=== PATIENT | male | born 1950 | race Asian ===

== ENCOUNTER 2021-04-27 15:32 | Outpatient (CLI) | payer SELFPAY | END 2021-04-27 15:33 | disposition EMS.NT | LOC: EMS 15:32 | DX: R42 Dizziness and giddiness (principal); R53.1 Weakness ==

== ENCOUNTER 2021-07-29 04:57 | Outpatient (CLI) | payer MEDICARE, OTHER | END 2021-07-29 04:58 | disposition short-term general hospital (02) | LOC: EMS 04:57 | DX: M54.50 Low back pain, unspecified (principal); G89.29 Other chronic pain | CPT/HCPCS: A0425; A0429 ==

== ENCOUNTER 2021-08-01 10:38 | Outpatient (CLI) | payer MEDICARE, OTHER | END 2021-08-01 10:39 | disposition short-term general hospital (02) | LOC: EMS 10:38 | DX: Z00.8 Encounter for other general examination (principal); R29.898 Other symptoms and signs involving the musculoskeletal system | CPT/HCPCS: A0425; A0429 ==

== ENCOUNTER 2022-03-01 13:36 | Outpatient (CLI) | payer MEDICARE, OTHER | END 2022-03-01 23:59 | disposition EMS.NT | LOC: EMS 13:36 | DX: F41.9 Anxiety disorder, unspecified (principal); R44.3 Hallucinations, unspecified ==

== ENCOUNTER 2022-03-09 14:51 | Outpatient (CLI) | payer MEDICARE, OTHER | END 2022-03-09 14:52 | disposition critical access hospital (66) | LOC: EMS 14:51 | DX: R07.89 Other chest pain (principal); R20.0 Anesthesia of skin; R23.1 Pallor; R06.00 Dyspnea, unspecified | CPT/HCPCS: A0425; A0427 ==

== ENCOUNTER 2022-03-09 15:07 | Emergency (ER) | payer MEDICARE, OTHER ==
--- NOTE | 2022-03-09 15:27 | ED Physician Documentation ---
PD HPI CHEST PAIN - Stated complaint Stated Complaint: CHEST PRESSURE - Chief complaint Chief Complaint: Cardiac - History obtained from History obtained from: Patient - History of Present Illness Timing - onset: Today (Onset of some chest discomfort and dyspnea after talking with his estranged . This made him very anxious. He has had some dyspnea over the last couple of days however. No edema. No fevers. Some mild cough.) Timing - onset during: Rest, Emotional event Timing - details: Abrupt onset, Still present (improving) Quality: Tightness Location: Substernal Associated symptoms: Shortness of air, Cough. No: Nausea, Feeling faint / dizzy, Palpitations Similar symptoms before: Has not had sx before Review of Systems Constitutional: denies: Fever, Chills Nose: denies: Rhinorrhea / runny nose, Congestion Throat: denies: Sore throat Cardiac: reports: Chest pain / pressure (just today). denies: Palpitations, Pedal edema, Calf pain Respiratory: reports: Dyspnea, Cough (mild). denies: Wheezing GI: denies: Nausea, Vomiting, Diarrhea Skin: denies: Rash, Lesions Neurologic: reports: Generalized weakness. denies: Focal weakness, Numbness PD PAST MEDICAL HISTORY - Past Medical History Cardiovascular: None Respiratory: None Neuro: Parkinson's (largely sedentary due to this. ) - Present Medications Home Medications: Ambulatory Orders Medication Instructions Recorded Confirmed Albuterol Sulf [Ventolin Hfa 3 puffs INH TID 15 Days #1 inhaler 03/09/22 Inhaler] cefUROXime axetiL [Ceftin] 250 mg PO Q12H #12 tablet 03/09/22 - Allergies Allergies/Adverse Reactions: Allergies Allergy/AdvReac Type Severity Reaction Status Date / Time ciprofloxacin [From Cipro] Allergy Unknown Verified 03/09/22 15:15 meperidine [From Demerol] Allergy Unknown Verified 03/09/22 15:15 - Living Situation Living Situation: reports: Alone Living Arrangement: reports: Assisted living - Social History Does the pt smoke?: No Does the pt drink ETOH?: No Does the pt have substance abuse?: No PD ED PE NORMAL - Vitals Vital signs reviewed: Yes - General General: Alert and oriented X 3, No acute distress, Well developed/nourished - HEENT HEENT: Pharynx benign - Neck Neck: Supple, no meningeal sign, No adenopathy - Cardiac Cardiac: RRR, No murmur - Respiratory Respiratory: Clear bilaterally - Abdomen Abdomen: Soft, Non tender - Derm Derm: Normal color, Warm and dry Results - Vitals Vitals: Vital Signs - 24 hr 03/09/22 03/09/22 03/09/22 15:16 15:43 17:51 Temperature 37.1 C Heart Rate 56 L 57 L 60 Respiratory 19 20 16 Rate Blood Pressure 181/97 H 191/96 H O2 Saturation 99 98 03/09/22 03/09/22 03/09/22 18:23 18:30 19:36 Temperature Heart Rate 63 61 70 Respiratory 20 18 14 Rate Blood Pressure 126/79 161/84 H 170/112 H O2 Saturation 98 97 98 03/09/22 19:37 Temperature Heart Rate 84 Respiratory 18 Rate Blood Pressure 170/98 H O2 Saturation 98 Oxygen O2 Source Room air - EKG (time done) 15:16 Rate: Rate (enter#) (58) Rhythm: NSR Scheller: Normal Intervals: Normal RI, Wide QRS QRS: LVH Ischemia: Normal ST segments, ST elevation c/w repol, Non specific changes. No: ST elevation c/w ischemia, ST depression - Labs Labs: Laboratory Tests 03/09/22 03/09/22 03/09/22 15:28 15:28 Unknown WBC 7.1 RBC 4.24 L Hgb 12.8 L Hct 38.3 L MCV 90.3 MCH 30.2 MCHC 33.4 RDW 13.5 Plt Count 203 MPV 9.4 Neut # (Auto) 4.8 Lymph # (Auto) 1.4 L [place] # (Auto) 0.7 Eos # (Auto) 0.2 Baso # (Auto) 0.1 Absolute Nucleated RBC 0.00 Nucleated RBC % 0.0 Sodium 134 L Potassium 4.4 Chloride 100 L Carbon Dioxide 27 Anion Gap 7.0 BUN 28 H Creatinine 1.0 Estimated GFR (MDRD) 74 L Glucose 109 H Calcium 9.0 Total Bilirubin 0.7 AST 16 ALT < 10 L Alkaline Phosphatase 65 Troponin I High Sens 9.4 Total Protein 6.5 L Albumin 4.4 Globulin 2.1 Albumin/Globulin Ratio 2.1 Lipase 29 - Rads (name of study) chest xray Radiology: Prelim report reviewed (lower right field haziness, atelectassis versus early pneumonia. ), See rad report PD MEDICAL DECISION MAKING - ED course Complexity details: reviewed results, considered differential (Onset of some chest discomfort and dyspnea after talking with his estranged . This made him very anxious. He has had some dyspnea over the last couple of days however. No edema. No fevers. Some mild cough.), d/w patient, d/w netsuite consultant (Dr. Kam, his PMD, and discussed findings and plan. ) Departure - Departure Disposition: 01 Home, Self Care Clinical Impression: Dyspnea, Pneumonia, Anxiety Condition: Stable Record reviewed to determine appropriate education?: Yes Follow-Up: RADHA KAM MD [Primary Care Provider] - Prescriptions: cefUROXime axetiL [Ceftin] 250 mg PO Q12H #12 tablet Albuterol Sulf [Ventolin Hfa Inhaler] 3 puffs INH TID 15 Days #1 inhaler Comments: I did talk with Dr. Kam who is in agreement with having you do the albuterol inhaler 2 puffs 3 times a day to help improve airflow through the lungs and expand them well. We would have you stop the Macrobid/nitrofurantoin antibiotic you are currently on for the bladder. We would replace it with cefuroxime twice daily for 6 days to cover both possible early pneumonia and any residual bladder infection. She would also like you to do an incentive spirometer 3 times daily to help expand the lungs well. Continue your other medicines as usual. I transmitted your prescriptions to [facility] pharmacy in [place]. Discharge Date/Time: 03/09/22 19:37
[2022-03-09 15:32] LABS: BASOPHILS # (AUTO) 0.1 10^3/uL (0.0-0.1); EOSINOPHILS # (AUTO) 0.2 10^3/uL (0.0-0.7); EOSINOPHILS % (AUTO) 2.3 %; HCT - HEMATOCRIT 38.3 % (42.0-52.0); HGB - HEMOGLOBIN 12.8 g/dL (14.0-18.0); LYMPHOCYTES # (AUTO) 1.4 10^3/uL (1.5-3.5); LYMPHOCYTES % (AUTO) 19.2 %; MEAN CORPUSCULAR HEMOGLOBIN 30.2 pg (27.0-31.0); MEAN CORPUSCULAR HGB CONC 33.4 g/dL (32.0-36.0); MEAN CORPUSCULAR VOLUME 90.3 fL (80.0-94.0); MEAN PLATELET VOLUME 9.4 fL (7.4-11.4); MONOCYTES # (AUTO) 0.7 10^3/uL (0.0-1.0); MONOCYTES % (AUTO) 9.5 %; NEUTROPHILS # (AUTO) 4.8 10^3/uL (1.5-6.6); NEUTROPHILS % (AUTO) 67.9 %; PLT - PLATELET COUNT 203 10^3/uL (130-450); RED BLOOD COUNT 4.24 10^6/uL (4.70-6.10); RED CELL DISTRIBUTION WIDTH 13.5 % (12.0-15.0); WHITE BLOOD COUNT 7.1 x10^3/uL (4.8-10.8)
[2022-03-09 15:50] LABS: ALBUMIN 4.4 g/dL (3.2-5.5); ALBUMIN/GLOBULIN RATIO 2.1 (1.0-2.2); ALKALINE PHOSPHATASE 65 IU/L (42-121); ALT ALANINE AMINOTRANSFERASE < 10 IU/L (10-60); AST ASPARTATE AMINOTRANSFERASE 16 IU/L (10-42); BILIRUBIN,TOTAL 0.7 mg/dL (0.2-1.0); BUN - BLOOD UREA NITROGEN 28 mg/dL (6-20); CARBON DIOXIDE - CO2 27 mmol/L (21-32); CHLORIDE 100 mmol/L (101-111); GFR - MDRD 74 (>89); GLUCOSE 109 mg/dL (70-100); LIPASE 29 U/L (22-51); POTASSIUM 4.4 mmol/L (3.5-5.0); SODIUM 134 mmol/L (135-145); TOTAL PROTEIN 6.5 g/dL (6.7-8.2)
--- NOTE | 2022-03-09 16:01 | XRAY Report ---
PROCEDURE: Chest 1 View X-Ray INDICATIONS: Chest Pain TECHNIQUE: One view of the chest was acquired. COMPARISON: None. FINDINGS: Surgical changes and devices: None. Lungs and pleura: No pleural effusions or pneumothorax. Hazy opacity at the right lower lobe. Mediastinum: Mediastinal contours appear normal. Heart size is prominent. Bones and chest wall: No suspicious bony lesions. Overlying soft tissues appear unremarkable. IMPRESSION: Right lower lobe hazy opacity. This could represent pneumonia or atelectasis. Heart size is prominent. Reviewed by: Fabian Francisco MD on 03/09/2022 3:59 PM PDT Approved by: Fabian Francisco MD on 03/09/2022 3:59 PM PDT Station ID: [id number]
[2022-03-09] MEDS ORDERED: CARBIDOPA/LEVODOPA ER 50 MG/200 MG TABLET PO STA (16:21)
--- OUTSIDE RECORDS SUMMARY | 2022-03-09 16:47 | EXTERNAL MEDICAL SUMMARY RPT | Continuity of Care Document ---
:1950 Author Organization [facility] Address [address] [place] [address] Phone Care Team Providers Name Role Phone Kam Unavailable Unavailable Reji Unavailable Unavailable Allergies No information. Encounters No information. Medications date description facility 20211229 Tams[facility]ide 0.4 [id number] Alfuzosin hydrochloride 10 MG Ext ended Release [facility] Tablet [id number] Cholecalciferol 2000 [facility] [id number] ferrous sulfate [address] [facility] [id number] ciclopirox 80 MG/ML Topical Solution [facility] 60258231 Melatonin 10 MG Oral Capsule [facility] [id number] Calcium Carbonate 1250 MG Oral Tablet [facility] 63358827 Dexamethasone 4 MG Oral Tablet [facility] 10021165 24 HR Alfuzosin hydrochloride 10 MG Ext ended Release [facility] Tablet [id number] Cholecalciferol 2000 [facility]NT [facility] 09297017 ferrous sulfate [address] [facility] 60365690 ciclopirox 80 MG/ML Topical Solution [facility] 92401592 Melatonin 10 MG [facility] [id number] Calcium Carbonate 1250 MG Oral Tablet [facility] 46429255 Dexamethasone 4 MG Oral Tablet [facility] Problems date description facility 20211214 Other obstructive and reflux uropathy [facility] [id number] Benign prostatic hyperplasia with lower urinary tract [facility] sympto Procedures date description facility 20220114 [facility] 20211214 [facility] [id number] [facility] [id number] [facility] [id number] Diagnosis [facility] Results No information. Vital Signs date measurement value source 20211214 weight_standard 79.83 lb 20211214 weight_metric 36.21 kg 20211214 respiration_rate 16 /min 20211214 height_standard 68 in 20211214 height_metric 172.72 cm 20211214 heart_rate 76 /min 20211214 BP_systolic 149 mm[Hg] 20211214 BP_diastolic 76 mm[Hg] 20211214 BMI 26.7 kg/m2 20220114 weight_standard 81.19 lb 20220114 weight_metric 36.83 kg 20220114 temperature_standard 98 F 20220114 temperature_metric 36.67 C 20220114 respiration_rate 18 /min 20220114 height_standard 68 in 20220114 height_metric 172.72 cm 20220114 heart_rate 60 /min 20220114 BP_systolic 168 mm[Hg] 20220114 BP_diastolic 78 mm[Hg] 20220114 BMI 27.2 kg/m2
[2022-03-09] MEDS ORDERED: ALBUTEROL 1 PUFF INH STA (16:57)
[2022-03-09 19:48] VITALS: BP 170/98
== END 2022-03-09 19:37 | disposition home or self-care (01) ==
LOC: EDUNIT# → ED 15:07
DX: J18.9 Pneumonia, unspecified organism (principal); F41.9 Anxiety disorder, unspecified
CPT/HCPCS: 36415; 71045; 80053; 83690; 84484; 85025; 93005; 94640; 94664; 99284; A9270

== ENCOUNTER 2022-04-09 07:02 | Outpatient (CLI) | payer MEDICARE, OTHER | END 2022-04-09 07:03 | disposition short-term general hospital (02) | LOC: EMS 07:02 | DX: M62.838 Other muscle spasm (principal); G20 Parkinson's disease | CPT/HCPCS: A0425; A0429 ==

== ENCOUNTER 2022-05-17 10:11 | Outpatient (CLI) | payer MEDICARE, OTHER | END 2022-05-17 10:12 | disposition critical access hospital (66) | LOC: EMS 10:11 | DX: R40.4 Transient alteration of awareness (principal) | CPT/HCPCS: A0425; A0427 ==

== ENCOUNTER 2022-05-17 10:26 | Emergency (ER) | payer MEDICARE, OTHER ==
--- OUTSIDE RECORDS SUMMARY | 2022-05-17 10:37 | EXTERNAL MEDICAL SUMMARY RPT | Continuity of Care Document ---
:1950 Author Organization [facility] Address [address] [place] [address] Phone Allergies and Intolerances date description facility type (no date) ciprofloxacin [facility] (unknown) (no date) codeine [facility] (unknown) (no date) meperidine [facility] (unknown) Encounters No information. Functional Status No information. Immunizations No information. Medications date description facility [id number] Lorazepam 1 MG Oral Tablet [facility] Problems No information. Procedures date description facility [id number] General Physician [facility] Results/Labs test date author facility value unit interpret ation Result panel 1 (unknown) (no (unknown) (unknown) Qty: 0 (units (unkno wn) date) unknown) (unknown) (no (unknown) (unknown) (no value) (units (unk nown) date) unknown) (unknown) (no (unknown) (unknown) PO (units (unkno wn) date) unknown) (unknown) (no (unknown) (unknown) Date of Service: (units (unknown) date) 04/09/22 unknown) (unknown) (no (unknown) (unknown) (no value) (units (unk nown) date) unknown) (unknown) (no (unknown) (unknown) 0 PO SEE (units (unkn own) date) INSTRUCTIONS Qty: unknown) 250 3RF (unknown) (no (unknown) (unknown) 0.4 mg PO BEDTIME (units (unknown) date) Qty: 90 3RF unknown) (unknown) (no (unknown) (unknown) 1 applic topical (units (unknown) date) BEDTIME unknown) (unknown) (no (unknown) (unknown) 1 tab PO Q6H PRN (units (unknown) date) (Reason: pain) Qty: unknown) 14 0RF (unknown) (no (unknown) (unknown) 10 mg PO BEDTIME (units (unknown) date) PRN unknown) (unknown) (no (unknown) (unknown) 10 mg PO TID PRN (units (unknown) date) (Reason: muscle unknown) spasm) Qty: 14 0RF (unknown) (no (unknown) (unknown) 20 mg PO DAILY (units (unknown) date) unknown) (unknown) (no (unknown) (unknown) 25 mg PO DAILY Qty: (unit s (unknown) date) 90 3RF unknown) (unknown) (no (unknown) (unknown) 50 mcg PO DAILY (units (unknown) date) unknown) (unknown) (no (unknown) (unknown) 500 mg PO TID (units ( unknown) date) unknown) (unknown) (no (unknown) (unknown) Allergies (units (unkn own) date) unknown) (unknown) (no (unknown) (unknown) ED Orders (units (unkn own) date) unknown) (unknown) (no (unknown) (unknown) Emergency Report (units (unknown) date) unknown) (unknown) (no (unknown) (unknown) Home Medications (units (unknown) date) unknown) (unknown) (no (unknown) (unknown) [facility] (units (unknown) date) [address] [place] [address] unknown) [place] [address] (unknown) (no (unknown) (unknown) Previous Rx's (units ( unknown) date) unknown) (unknown) (no (unknown) (unknown) Stop: 04/09/22 (units (unknown) date) 08:10 unknown) (unknown) (no (unknown) (unknown) Vital Signs - 8 hr (units (unknown) date) unknown) (unknown) (no (unknown) (unknown) (no value) (units (unk nown) date) unknown) (unknown) (no (unknown) (unknown) Myrbetriq 25 mg (units (unknown) date) tablet extended unknown) release 24 hr (unknown) (no (unknown) (unknown) alzet (units (unkno wn) date) unknown) (unknown) (no (unknown) (unknown) calcium carbonate (units (unknown) date) 500 mg calcium unknown) (1,250 mg) tablet (unknown) (no (unknown) (unknown) carbidopa-levodopa (units (unknown) date) 50 MG/200 MG tablet unknown) extended release (unknown) (no (unknown) (unknown) cholecalciferol (units (unknown) date) (vitamin D3) 50 mcg unknown) (2,000 unit) capsule (unknown) (no (unknown) (unknown) ciclopirox 8 % (units (unknown) date) solution unknown) (unknown) (no (unknown) (unknown) cyclobenzaprine 10 (units (unknown) date) mg tablet unknown) (unknown) (no (unknown) (unknown) diphenhydramine HCl (unit s (unknown) date) [Banophen Allergy] unknown) 12.5 MG/5 ML liquid (unknown) (no (unknown) (unknown) hydrocodone-acetami (unit s (unknown) date) nophen 5-325 mg unknown) tablet (unknown) (no (unknown) (unknown) melatonin 10 mg (units (unknown) date) capsule unknown) (unknown) (no (unknown) (unknown) omeprazole 20 mg (units (unknown) date) capsule,delayed unknown) release(DR/EC) (unknown) (no (unknown) (unknown) tamsulosin [Flomax] (unit s (unknown) date) 0.4 mg capsule unknown) (unknown) (no (unknown) (unknown) 04/09/22 (units (o wn) date) unknown) (unknown) (no (unknown) (unknown) Medication (units (unk nown) date) Instructions unknown) Recorded (unknown) (no (unknown) (unknown) Medication (units (unk nown) date) Instructions unknown) Recorded Confirmed (unknown) (no (unknown) (unknown) tabs (units (o wn) date) unknown) (unknown) (no (unknown) (unknown) (1,250 mg) tablet (units (unknown) date) unknown) (unknown) (no (unknown) (unknown) 04/09/22 07:55 (units (unknown) date) unknown) (unknown) (no (unknown) (unknown) 07:50 (units (o wn) date) unknown) (unknown) (no (unknown) (unknown) [id number] (units (o wn) date) unknown) (unknown) (no (unknown) (unknown) ABD:bowel sounds (units (unknown) date) normal, soft, unknown) non-tender, no guarding, rebound, rigidity, no (unknown) (no (unknown) (unknown) ADHD (units (unkno wn) date) unknown) (unknown) (no (unknown) (unknown) Acne (-1964) (units (u nknown) date) unknown) (unknown) (no (unknown) (unknown) Age/Sex: 71 / M (units (unknown) date) unknown) (unknown) (no (unknown) (unknown) Allergy/AdvReac (units (unknown) date) Type Severity unknown) Reaction Status Date / Time (unknown) (no (unknown) (unknown) Anesthesia (units (unk nown) date) unknown) (unknown) (no (unknown) (unknown) BPH (benign (units (un known) date) prostatic unknown) hyperplasia) (unknown) (no (unknown) (unknown) BPH w urinary (units ( unknown) date) obs/LUTS unknown) (unknown) (no (unknown) (unknown) Blood Pressure (units (unknown) date) 170/78 H 04/09/22 unknown) 07:50 (unknown) (no (unknown) (unknown) Blood Pressure (units (unknown) date) 170/78 H unknown) (unknown) (no (unknown) (unknown) Broken arm (-1965) (units (unknown) date) unknown) (unknown) (no (unknown) (unknown) CBC Auto Diff (units ( unknown) date) [Complete Blood unknown) Count AUTO DIFF] Stat (unknown) (no (unknown) (unknown) CMP [Comprehensive (units (unknown) date) Metabolic Panel] unknown) Stat (unknown) (no (unknown) (unknown) Cataracts, (units (unk nown) date) bilateral (-2014) unknown) (unknown) (no (unknown) (unknown) Chicken pox (units (un known) date) unknown) (unknown) (no (unknown) (unknown) Chief complaint: (units (unknown) date) Weakness unknown) (unknown) (no (unknown) (unknown) Chronic back pain (units (unknown) date) (-2014) unknown) (unknown) (no (unknown) (unknown) Course (units (unkno wn) date) unknown) (unknown) (no (unknown) (unknown) : 1950 (units (unknown) date) Acct:[id number] unknown) (unknown) (no (unknown) (unknown) Departure (units (unkn own) date) unknown) (unknown) (no (unknown) (unknown) Depression () (units (unknown) date) unknown) (unknown) (no (unknown) (unknown) Discharge Plan (units (unknown) date) unknown) (unknown) (no (unknown) (unknown) Discontinued (units (u nknown) date) Medications unknown) (unknown) (no (unknown) (unknown) EKG-12 Lead Stat (units (unknown) date) unknown) (unknown) (no (unknown) (unknown) EMS and they state (units (unknown) date) that he would have unknown) episodes of spasms they were able to (unknown) (no (unknown) (unknown) ER Physician: (units ( unknown) date) Azul Leon D.O. unknown) (unknown) (no (unknown) (unknown) Eczema (-1957) (units (unknown) date) unknown) (unknown) (no (unknown) (unknown) Elevated PSA (units (u nknown) date) unknown) (unknown) (no (unknown) (unknown) Exam (units (unkno wn) date) unknown) (unknown) (no (unknown) (unknown) Exam Narrative: (units (unknown) date) unknown) (unknown) (no (unknown) (unknown) Family History (units (unknown) date) (Reviewed 04/09/22 @ unknown) 08:12 by Azul Leon DO) (unknown) (no (unknown) (unknown) Family history of (units (unknown) date) prostate cancer unknown) (unknown) (no (unknown) (unknown) Father (units (unknown) date) Stroke unknown) (unknown) (no (unknown) (unknown) Foot pain () (units (unknown) date) unknown) (unknown) (no (unknown) (unknown) GEN: well (units (unkn own) date) nourished, well unknown) appearing male, alert and oriented x 3, patient (unknown) (no (unknown) (unknown) GERD (units (unkno wn) date) (gastroesophageal unknown) reflux disease) () (unknown) (no (unknown) (unknown) :No CVA (units (unkn own) date) tenderness unknown) (unknown) (no (unknown) (unknown) Marilin Kam MD (unit s (unknown) date) [Primary Care unknown) Provider] - (unknown) (no (unknown) (unknown) Gastric ulcer (units ( unknown) date) () unknown) (unknown) (no (unknown) (unknown) General (units (unkno wn) date) unknown) (unknown) (no (unknown) (unknown) HEART: Regular rate (units (unknown) date) and rhythm without unknown) murmur, clicks, rubs. Pulses are equal in (unknown) (no (unknown) (unknown) HEENT: Atraumatic, (units (unknown) date) pupils are equal unknown) round reactive to light, extraocular (unknown) (no (unknown) (unknown) HPI - General Adult (unit s (unknown) date) unknown) (unknown) (no (unknown) (unknown) HPI narrative: (units (unknown) date) unknown) (unknown) (no (unknown) (unknown) He is unsure if he (units (unknown) date) has had his a.m. unknown) Parkinson's medications he does take them 4 (unknown) (no (unknown) (unknown) Hearing loss (units (u nknown) date) () unknown) (unknown) (no (unknown) (unknown) Hemorrhoid () (units (unknown) date) unknown) (unknown) (no (unknown) (unknown) Hepatitis A () (unit s (unknown) date) unknown) (unknown) (no (unknown) (unknown) History of Present (units (unknown) date) Illness unknown) (unknown) (no (unknown) (unknown) Initial Vital Signs (unit s (unknown) date) unknown) (unknown) (no (unknown) (unknown) Initial Vital (units ( unknown) date) Signs: unknown) (unknown) (no (unknown) (unknown) LUNGS:Lungs clear (units (unknown) date) to auscultation, no unknown) wheezes, rales, crackles, chest moves (unknown) (no (unknown) (unknown) Limitations: no (units (unknown) date) limitations unknown) (unknown) (no (unknown) (unknown) Lorazepam (units (unkn own) date) (Lorazepam 0.5 Mg unknown) Tablet) 1 mg PO NOW ONE (unknown) (no (unknown) (unknown) MAG [Magnesium] (units (unknown) date) Stat unknown) (unknown) (no (unknown) (unknown) MDM Narrative (units ( unknown) date) unknown) (unknown) (no (unknown) (unknown) MSCL: Non-tender, (units (unknown) date) no muscle atrophy, unknown) patient is lying on his side, he has some (unknown) (no (unknown) (unknown) Measles (units (unkno wn) date) unknown) (unknown) (no (unknown) (unknown) Medical Decision (units (unknown) date) Making unknown) (unknown) (no (unknown) (unknown) Medical History (units (unknown) date) (Reviewed 04/09/22 @ unknown) 08:12 by Azul Leon DO) (unknown) (no (unknown) (unknown) Medical decision (units (unknown) date) making narrative: unknown) (unknown) (no (unknown) (unknown) Mode of arrival: (units (unknown) date) EMS unknown) (unknown) (no (unknown) (unknown) Mother (units (unknown) date) Alzheimer's disease unknown) (unknown) (no (unknown) (unknown) Mumps (units (unkno wn) date) unknown) (unknown) (no (unknown) (unknown) NEURO:CN 2-12 (units (u nknown) date) intact, sensation unknown) normal, reflexes 2/4 upper and lower extremities (unknown) (no (unknown) (unknown) Narrative (units (unkn own) date) unknown) (unknown) (no (unknown) (unknown) No Action (units (unkn own) date) unknown) (unknown) (no (unknown) (unknown) Ordered: (units (unkno wn) date) unknown) (unknown) (no (unknown) (unknown) Orders (units (unkno wn) date) unknown) (unknown) (no (unknown) (unknown) Oxygen Delivery (units (unknown) date) Method 04/09/22 unknown) 07:50 (unknown) (no (unknown) (unknown) Oxygen Delivery (units (unknown) date) Method Room Air unknown) (unknown) (no (unknown) (unknown) Parkinsons disease (units (unknown) date) unknown) (unknown) (no (unknown) (unknown) Patient History (units (unknown) date) unknown) (unknown) (no (unknown) (unknown) Patient presents (units (unknown) date) today for spasms. unknown) Patient currently lives in a nursing (unknown) (no (unknown) (unknown) Patient: (units (unkno wn) date) Mary Dumont unknown) MR#: [id number] (unknown) (no (unknown) (unknown) Prescriptions: (units (unknown) date) unknown) (unknown) (no (unknown) (unknown) Pulse Oximetry 96 (units (unknown) date) 04/09/22 07:50 unknown) (unknown) (no (unknown) (unknown) Pulse Oximetry 96 (units (unknown) date) unknown) (unknown) (no (unknown) (unknown) Pulse Rate 57 L (units (unknown) date) 04/09/22 07:50 unknown) (unknown) (no (unknown) (unknown) Pulse Rate 57 L (units (unknown) date) unknown) (unknown) (no (unknown) (unknown) ROS Unobtainable: (units (unknown) date) All systems reviewed unknown) + are unremarkable except as noted in HPI (unknown) (no (unknown) (unknown) Recurrent sinusitis (unit s (unknown) date) (-1993) unknown) (unknown) (no (unknown) (unknown) Referrals: (units (unk nown) date) unknown) (unknown) (no (unknown) (unknown) Related Data (units (u nknown) date) unknown) (unknown) (no (unknown) (unknown) Respiratory Rate (units (unknown) date) 18 04/09/22 07:50 unknown) (unknown) (no (unknown) (unknown) Respiratory Rate 18 (unit s (unknown) date) unknown) (unknown) (no (unknown) (unknown) Restless leg (units (u nknown) date) syndrome (-2014) unknown) (unknown) (no (unknown) (unknown) Review of Systems (units (unknown) date) unknown) (unknown) (no (unknown) (unknown) SKIN: No rash, (units (unknown) date) erythema or other unknown) skin changes noted. (unknown) (no (unknown) (unknown) Shoulder pain (units ( unknown) date) () unknown) (unknown) (no (unknown) (unknown) Signed By: (units (unk nown) date) unknown) (unknown) (no (unknown) (unknown) Sister (units (unknown) date) Cancer unknown) (unknown) (no (unknown) (unknown) Smoking Status: (units (unknown) date) Former smoker unknown) (unknown) (no (unknown) (unknown) Smoking Status: (units (unknown) date) Former smoker unknown) (unknown) (no (unknown) (unknown) Social History (units (unknown) date) (Reviewed 04/09/22 @ unknown) 08:12 by Azul Leon DO) (unknown) (no (unknown) (unknown) Source: patient and (unit s (unknown) date) EMS unknown) (unknown) (no (unknown) (unknown) Stated complaint: (units (unknown) date) Spasms unknown) (unknown) (no (unknown) (unknown) Substance Use Type: (unit s (unknown) date) does not use unknown) (unknown) (no (unknown) (unknown) Substance abuse (units (unknown) date) unknown) (unknown) (no (unknown) (unknown) Surgical History (units (unknown) date) (Reviewed 04/09/22 @ unknown) 08:12 by Azul Leon DO) (unknown) (no (unknown) (unknown) Temperature 98.6 F (unit s (unknown) date) 04/09/22 07:50 unknown) (unknown) (no (unknown) (unknown) Temperature 98.6 F (units (unknown) date) unknown) (unknown) (no (unknown) (unknown) This is a (units (unkn own) date) 71-year-old male who unknown) comes to the emergency department with complaint (unknown) (no (unknown) (unknown) This is a (units (unkn own) date) 71-year-old male unknown) with known history of Parkinson's disease and BPH. (unknown) (no (unknown) (unknown) Time Seen by (units (u nknown) date) Provider: 04/09/22 unknown) 07:55 (unknown) (no (unknown) (unknown) Tinnitus (-2017) (units (unknown) date) unknown) (unknown) (no (unknown) (unknown) Vertigo (-2020) (units (unknown) date) unknown) (unknown) (no (unknown) (unknown) Vision disorder (units (unknown) date) unknown) (unknown) (no (unknown) (unknown) Vital Signs (units (un known) date) unknown) (unknown) (no (unknown) (unknown) Vital signs: (units (u nknown) date) unknown) (unknown) (no (unknown) (unknown) alcohol intake (units (unknown) date) frequency: 0-2 unknown) drinks per day (unknown) (no (unknown) (unknown) alzet PO 06/27/20 (units (unknown) date) 12/14/21 unknown) (unknown) (no (unknown) (unknown) and below (units (unkn own) date) unknown) (unknown) (no (unknown) (unknown) any point. (units (unk nown) date) unknown) (unknown) (no (unknown) (unknown) appears to be in (units (unknown) date) mild distress. unknown) Clear speech. (unknown) (no (unknown) (unknown) benzodiazepine. (units (unknown) date) Evaluated for unknown) infection. (unknown) (no (unknown) (unknown) body spasms they (units (unknown) date) have a finger cot unknown) why. Typically he has a tremor he does have (unknown) (no (unknown) (unknown) but states there (units (unknown) date) was no exact cause unknown) found he is on medications for Parkinson's, (unknown) (no (unknown) (unknown) calcium carbonate (units (unknown) date) 500 mg calcium 500 unknown) mg PO TID 12/14/21 12/14/21 (unknown) (no (unknown) (unknown) carbidopa ER 50 (units (unknown) date) mg-levodopa 200 mg 0 unknown) PO SEE INSTRUCTIONS #250 tabs 09/16/17 (unknown) (no (unknown) (unknown) chest pain or (units (u nknown) date) pressure. He has unknown) had some spasm in his muscles all over the cause (unknown) (no (unknown) (unknown) cholecalciferol (units (unknown) date) (vitamin D3) 50 50 unknown) mcg PO DAILY 12/14/21 12/14/21 (unknown) (no (unknown) (unknown) ciclopirox 8 % (units (unknown) date) topical solution 1 unknown) applic topical BEDTIME 12/14/21 12/14/21 (unknown) (no (unknown) (unknown) ciprofloxacin [From (unit s (unknown) date) Cipro] Allergy unknown) Verified 08/01/21 12:33 (unknown) (no (unknown) (unknown) codeine [CODEINE] (units (unknown) date) Allergy Severe unknown) unkown Unverified 08/01/21 12:33 (unknown) (no (unknown) (unknown) cyclobenzaprine 10 (units (unknown) date) mg tablet 10 mg PO unknown) TID PRN muscle spasm #14 07/29/21 (unknown) (no (unknown) (unknown) difficulty with (units (unknown) date) ambulation secondary unknown) to Parkinson's which he states is the (unknown) (no (unknown) (unknown) diphenhydramine HCl (unit s (unknown) date) 12.5 mg/5 mL ##0 unknown) 08/13/17 12/14/21 (unknown) (no (unknown) (unknown) distract him and (units (unknown) date) they would stop and unknown) they would also note that his O2 improved (unknown) (no (unknown) (unknown) electrolyte (units (un known) date) abnormalities, unknown) patient and I discussed trying a dose of oral (unknown) (no (unknown) (unknown) erythema, tonsillar (unit s (unknown) date) enlargement or unknown) uvular deviation, no facial droop. (unknown) (no (unknown) (unknown) extremities. No (units (unknown) date) obvious unknown) fasciculations or movements of his extremities (unknown) (no (unknown) (unknown) facility. He (units ( unknown) date) states he has not unknown) had any new dosing changes to his medications. (unknown) (no (unknown) (unknown) he is at least (units (unknown) date) part-time in a unknown) wheelchair. Labs were obtained to evaluate for (unknown) (no (unknown) (unknown) hydrocodone 5 (units ( unknown) date) mg-acetaminophen 325 unknown) 1 tab PO Q6H PRN pain #14 tabs 07/29/21 (unknown) (no (unknown) (unknown) is in a wheelchair. (unit s (unknown) date) Patient denies any unknown) fevers or chills. He states he has had (unknown) (no (unknown) (unknown) masses noted, no (units (unknown) date) hepatosplenomegaly unknown) (unknown) (no (unknown) (unknown) mcg (2,000 unit) (units (unknown) date) capsule unknown) (unknown) (no (unknown) (unknown) melatonin 10 mg (units (unknown) date) capsule 10 mg PO unknown) BEDTIME PRN 12/14/21 12/14/21 (unknown) (no (unknown) (unknown) meperidine [From (units (unknown) date) DEMEROL] Allergy unknown) Severe HYPOTHERMIA Unverified 08/01/21 12:33 (unknown) (no (unknown) (unknown) mg tablet (units (unkn own) date) unknown) (unknown) (no (unknown) (unknown) mild tremor and pill (unit s (unknown) date) rolling with his unknown) upper extremities mild tremor in his lower (unknown) (no (unknown) (unknown) mirabegron 25 mg (units (unknown) date) tablet,extended 25 unknown) mg PO DAILY #90 tabs 03/10/21 (unknown) (no (unknown) (unknown) movements are (units ( unknown) date) intact, nares are unknown) clear, Throat is clear without any exudates, (unknown) (no (unknown) (unknown) of full body spasms (unit s (unknown) date) patient does not unknown) have any witnessed seizure-like activity (unknown) (no (unknown) (unknown) omeprazole 20 mg (units (unknown) date) capsule,delayed 20 unknown) mg PO DAILY 06/23/20 12/14/21 (unknown) (no (unknown) (unknown) or bladder control. (units (unknown) date) No recent diarrhea. unknown) No new urinary issues, dysuria urgency (unknown) (no (unknown) (unknown) or frequency. He (units (unknown) date) does not appreciated unknown) any fevers. Patient traveled here with (unknown) (no (unknown) (unknown) oral liquid (units (un known) date) (Banophen Allergy) unknown) (unknown) (no (unknown) (unknown) otherwise. (units (unk nown) date) unknown) (unknown) (no (unknown) (unknown) per EMS during (units (unknown) date) these episodes. His unknown) O2 sat creases he is distractible during (unknown) (no (unknown) (unknown) reason he is in a (units (unknown) date) nursing facility. unknown) He sometimes uses a walker but other times (unknown) (no (unknown) (unknown) release (units (unkno wn) date) unknown) (unknown) (no (unknown) (unknown) release 24 hr (units ( unknown) date) (Myrbetriq) unknown) (unknown) (no (unknown) (unknown) some discomfort. He (unit s (unknown) date) denies any nausea or unknown) vomiting. He denies any loss of bowel (unknown) (no (unknown) (unknown) some nasal (units (unk nown) date) congestion starting unknown) yesterday, a mild cough. He denies any active (unknown) (no (unknown) (unknown) symmetrically (units ( unknown) date) unknown) (unknown) (no (unknown) (unknown) tablet,extended (units (unknown) date) release unknown) (unknown) (no (unknown) (unknown) tamsulosin 0.4 mg (units (unknown) date) capsule (Flomax) 0.4 unknown) mg PO BEDTIME #90 caps 12/29/21 (unknown) (no (unknown) (unknown) these episodes. (units (unknown) date) During discussion unknown) patient states he has had them once before (unknown) (no (unknown) (unknown) times daily. (units (u nknown) date) Patient states he unknown) has had prior episodes were he have sees full (unknown) (no (unknown) (unknown) upper and lower (units (unknown) date) extremities unknown) (unknown) (no (unknown) (unknown) with these episodes (units (unknown) date) occurred. Per EMS unknown) patient was not tachycardic or hypoxic at Result panel 2 (unknown) (no (unknown) (unknown) Qty: 0 (units (unkno wn) date) unknown) (unknown) (no (unknown) (unknown) (no value) (units (unk nown) date) unknown) (unknown) (no (unknown) (unknown) PO (units (unkno wn) date) unknown) (unknown) (no (unknown) (unknown) Date of Service: (units (unknown) date) 04/09/22 unknown) (unknown) (no (unknown) (unknown) (no value) (units (unk nown) date) unknown) (unknown) (no (unknown) (unknown) 0 PO SEE (units (unkn own) date) INSTRUCTIONS Qty: unknown) 250 3RF (unknown) (no (unknown) (unknown) 0.4 mg PO BEDTIME (units (unknown) date) Qty: 90 3RF unknown) (unknown) (no (unknown) (unknown) 1 applic topical (units (unknown) date) BEDTIME unknown) (unknown) (no (unknown) (unknown) 1 tab PO Q6H PRN (units (unknown) date) (Reason: pain) Qty: unknown) 14 0RF (unknown) (no (unknown) (unknown) 10 mg PO BEDTIME (units (unknown) date) PRN unknown) (unknown) (no (unknown) (unknown) 10 mg PO TID PRN (units (unknown) date) (Reason: muscle unknown) spasm) Qty: 14 0RF (unknown) (no (unknown) (unknown) 20 mg PO DAILY (units (unknown) date) unknown) (unknown) (no (unknown) (unknown) 25 mg PO DAILY Qty: (unit s (unknown) date) 90 3RF unknown) (unknown) (no (unknown) (unknown) 50 mcg PO DAILY (units (unknown) date) unknown) (unknown) (no (unknown) (unknown) 500 mg PO TID (units ( unknown) date) unknown) (unknown) (no (unknown) (unknown) Allergies (units (unkn own) date) unknown) (unknown) (no (unknown) (unknown) ED Orders (units (unkn own) date) unknown) (unknown) (no (unknown) (unknown) Emergency Report (units (unknown) date) unknown) (unknown) (no (unknown) (unknown) Home Medications (units (unknown) date) unknown) (unknown) (no (unknown) (unknown) [facility] (units (unknown) date) [address] [place] [address] unknown) [place] [address] (unknown) (no (unknown) (unknown) Previous Rx's (units ( unknown) date) unknown) (unknown) (no (unknown) (unknown) Stop: 04/09/22 (units (unknown) date) 08:10 unknown) (unknown) (no (unknown) (unknown) Urine Dip (units (unkn own) date) unknown) (unknown) (no (unknown) (unknown) Vital Signs - 8 hr (units (unknown) date) unknown) (unknown) (no (unknown) (unknown) (no value) (units (unk nown) date) unknown) (unknown) (no (unknown) (unknown) Myrbetriq 25 mg (units (unknown) date) tablet extended unknown) release 24 hr (unknown) (no (unknown) (unknown) alzet (units (unkno wn) date) unknown) (unknown) (no (unknown) (unknown) calcium carbonate (units (unknown) date) 500 mg calcium unknown) (1,250 mg) tablet (unknown) (no (unknown) (unknown) carbidopa-levodopa (units (unknown) date) 50 MG/200 MG tablet unknown) extended release (unknown) (no (unknown) (unknown) cholecalciferol (units (unknown) date) (vitamin D3) 50 mcg unknown) (2,000 unit) capsule (unknown) (no (unknown) (unknown) ciclopirox 8 % (units (unknown) date) solution unknown) (unknown) (no (unknown) (unknown) cyclobenzaprine 10 (units (unknown) date) mg tablet unknown) (unknown) (no (unknown) (unknown) diphenhydramine HCl (unit s (unknown) date) [Banophen Allergy] unknown) 12.5 MG/5 ML liquid (unknown) (no (unknown) (unknown) hydrocodone-acetami (unit s (unknown) date) nophen 5-325 mg unknown) tablet (unknown) (no (unknown) (unknown) melatonin 10 mg (units (unknown) date) capsule unknown) (unknown) (no (unknown) (unknown) omeprazole 20 mg (units (unknown) date) capsule,delayed unknown) release(DR/EC) (unknown) (no (unknown) (unknown) tamsulosin [Flomax] (unit s (unknown) date) 0.4 mg capsule unknown) (unknown) (no (unknown) (unknown) 04/09/22 (units (unkno wn) date) unknown) (unknown) (no (unknown) (unknown) Medication (units (unk nown) date) Instructions unknown) Recorded (unknown) (no (unknown) (unknown) Medication (units (unk nown) date) Instructions unknown) Recorded Confirmed (unknown) (no (unknown) (unknown) tabs (units (unkno wn) date) unknown) (unknown) (no (unknown) (unknown) (1,250 mg) tablet (units (unknown) date) unknown) (unknown) (no (unknown) (unknown) 01/14/2022 with no (units (unknown) date) change. unknown) (unknown) (no (unknown) (unknown) 04/09/22 07:55 (units (unknown) date) unknown) (unknown) (no (unknown) (unknown) 07:50 (units (unkno wn) date) unknown) (unknown) (no (unknown) (unknown) [id number] (units (unkno wn) date) unknown) (unknown) (no (unknown) (unknown) 449. No acute ST (units (unknown) date) elevation or unknown) depression noted. Patient has prior from (unknown) (no (unknown) (unknown) ABD:bowel sounds (units (unknown) date) normal, soft, unknown) non-tender, no guarding, rebound, rigidity, no (unknown) (no (unknown) (unknown) ADHD (units (unkno wn) date) unknown) (unknown) (no (unknown) (unknown) Acne (-1964) (units (u nknown) date) unknown) (unknown) (no (unknown) (unknown) Age/Sex: 71 / M (units (unknown) date) unknown) (unknown) (no (unknown) (unknown) Allergy/AdvReac (units (unknown) date) Type Severity unknown) Reaction Status Date / Time (unknown) (no (unknown) (unknown) Anesthesia (units (unk nown) date) unknown) (unknown) (no (unknown) (unknown) Attestation: I (units (unknown) date) personally reviewed unknown) and interpreted this ECG as follows: (unknown) (no (unknown) (unknown) BPH (benign (units (un known) date) prostatic unknown) hyperplasia) (unknown) (no (unknown) (unknown) BPH w urinary (units ( unknown) date) obs/LUTS unknown) (unknown) (no (unknown) (unknown) Bedside Urine (units ( unknown) date) Bilirubin - unknown) Negative (unknown) (no (unknown) (unknown) Bedside Urine (units ( unknown) date) Glucose Negative unknown) (unknown) (no (unknown) (unknown) Bedside Urine (units ( unknown) date) Ketone - Negative unknown) (unknown) (no (unknown) (unknown) Bedside Urine (units ( unknown) date) Leukocytes - unknown) Negative (unknown) (no (unknown) (unknown) Bedside Urine (units ( unknown) date) Nitrite - unknown) Negative (unknown) (no (unknown) (unknown) Bedside Urine (units ( unknown) date) Occult Blood - unknown) Negative (unknown) (no (unknown) (unknown) Bedside Urine (units ( unknown) date) Protein - unknown) Negative (unknown) (no (unknown) (unknown) Bedside Urine (units ( unknown) date) Urobilinogen - unknown) Negative (unknown) (no (unknown) (unknown) Bedside Urine pH (units (unknown) date) 6.0 unknown) (unknown) (no (unknown) (unknown) Blood Pressure (units (unknown) date) 170/78 H 04/09/22 unknown) 07:50 (unknown) (no (unknown) (unknown) Blood Pressure (units (unknown) date) 170/78 H unknown) (unknown) (no (unknown) (unknown) Broken arm (-1965) (units (unknown) date) unknown) (unknown) (no (unknown) (unknown) CBC Auto Diff (units ( unknown) date) [Complete Blood unknown) Count AUTO DIFF] Stat (unknown) (no (unknown) (unknown) CMP [Comprehensive (units (unknown) date) Metabolic Panel] unknown) Stat (unknown) (no (unknown) (unknown) Cataracts, (units (unk nown) date) bilateral (-2015) unknown) (unknown) (no (unknown) (unknown) Chicken pox (units (un known) date) unknown) (unknown) (no (unknown) (unknown) Chief complaint: (units (unknown) date) Weakness unknown) (unknown) (no (unknown) (unknown) Chronic back pain (units (unknown) date) (-2014) unknown) (unknown) (no (unknown) (unknown) Course (units (unkno wn) date) unknown) (unknown) (no (unknown) (unknown) : 1950 (units (unknown) date) Acct:[id number] unknown) (unknown) (no (unknown) (unknown) Departure (units (unkn own) date) unknown) (unknown) (no (unknown) (unknown) Depression (-1995) (units (unknown) date) unknown) (unknown) (no (unknown) (unknown) Discharge Plan (units (unknown) date) unknown) (unknown) (no (unknown) (unknown) Discontinued (units (u nknown) date) Medications unknown) (unknown) (no (unknown) (unknown) ECG Data (units (unkno wn) date) unknown) (unknown) (no (unknown) (unknown) EKG-12 Lead Stat (units (unknown) date) unknown) (unknown) (no (unknown) (unknown) EMS and they state (units (unknown) date) that he would have unknown) episodes of spasms they were able to (unknown) (no (unknown) (unknown) ER Physician: (units ( unknown) date) Azul Leon D.O. unknown) (unknown) (no (unknown) (unknown) Eczema () (units (unknown) date) unknown) (unknown) (no (unknown) (unknown) Elevated PSA (units (u nknown) date) unknown) (unknown) (no (unknown) (unknown) Esterase (units (unkno wn) date) unknown) (unknown) (no (unknown) (unknown) Exam (units (unkno wn) date) unknown) (unknown) (no (unknown) (unknown) Exam Narrative: (units (unknown) date) unknown) (unknown) (no (unknown) (unknown) Family History (units (unknown) date) (Reviewed 04/09/22 @ unknown) 08:12 by Azul Leon DO) (unknown) (no (unknown) (unknown) Family history of (units (unknown) date) prostate cancer unknown) (unknown) (no (unknown) (unknown) Father (units (unknown) date) Stroke unknown) (unknown) (no (unknown) (unknown) Foot pain (-1964) (units (unknown) date) unknown) (unknown) (no (unknown) (unknown) GEN: well (units (unkn own) date) nourished, well unknown) appearing male, alert and oriented x 3, patient (unknown) (no (unknown) (unknown) GERD (units (unkno wn) date) (gastroesophageal unknown) reflux disease) () (unknown) (no (unknown) (unknown) :No CVA (units (unkn own) date) tenderness unknown) (unknown) (no (unknown) (unknown) Marilin Kam MD (unit s (unknown) date) [Primary Care unknown) Provider] - (unknown) (no (unknown) (unknown) Gastric ulcer (units ( unknown) date) () unknown) (unknown) (no (unknown) (unknown) General (units (unkno wn) date) unknown) (unknown) (no (unknown) (unknown) HEART: Regular rate (units (unknown) date) and rhythm without unknown) murmur, clicks, rubs. Pulses are equal in (unknown) (no (unknown) (unknown) HEENT: Atraumatic, (units (unknown) date) pupils are equal unknown) round reactive to light, extraocular (unknown) (no (unknown) (unknown) HPI - General Adult (unit s (unknown) date) unknown) (unknown) (no (unknown) (unknown) HPI narrative: (units (unknown) date) unknown) (unknown) (no (unknown) (unknown) He is unsure if he (units (unknown) date) has had his a.m. unknown) Parkinson's medications he does take them 4 (unknown) (no (unknown) (unknown) Hearing loss (units (u nknown) date) () unknown) (unknown) (no (unknown) (unknown) Hemorrhoid () (units (unknown) date) unknown) (unknown) (no (unknown) (unknown) Hepatitis A (-1988) (unit s (unknown) date) unknown) (unknown) (no (unknown) (unknown) History of Present (units (unknown) date) Illness unknown) (unknown) (no (unknown) (unknown) Initial Vital Signs (unit s (unknown) date) unknown) (unknown) (no (unknown) (unknown) Initial Vital (units ( unknown) date) Signs: unknown) (unknown) (no (unknown) (unknown) Interpretation: (units (unknown) date) unknown) (unknown) (no (unknown) (unknown) LUNGS:Lungs clear (units (unknown) date) to auscultation, no unknown) wheezes, rales, crackles, chest moves (unknown) (no (unknown) (unknown) Lab Data (units (unkno wn) date) unknown) (unknown) (no (unknown) (unknown) Labs: (units (unkno wn) date) unknown) (unknown) (no (unknown) (unknown) Left bundle branch (units (unknown) date) block sinus unknown) bradycardia rate of 57 TN 200 QRS of 140 QTC of (unknown) (no (unknown) (unknown) Limitations: no (units (unknown) date) limitations unknown) (unknown) (no (unknown) (unknown) Lorazepam (units (unkn own) date) (Lorazepam 0.5 Mg unknown) Tablet) 1 mg PO NOW ONE (unknown) (no (unknown) (unknown) MAG [Magnesium] (units (unknown) date) Stat unknown) (unknown) (no (unknown) (unknown) MDM Narrative (units ( unknown) date) unknown) (unknown) (no (unknown) (unknown) MSCL: Non-tender, (units (unknown) date) no muscle atrophy, unknown) patient is lying on his side, he has some (unknown) (no (unknown) (unknown) Measles (units (unkno wn) date) unknown) (unknown) (no (unknown) (unknown) Medical Decision (units (unknown) date) Making unknown) (unknown) (no (unknown) (unknown) Medical History (units (unknown) date) (Reviewed 04/09/22 @ unknown) 08:12 by Azul Leon DO) (unknown) (no (unknown) (unknown) Medical decision (units (unknown) date) making narrative: unknown) (unknown) (no (unknown) (unknown) Mode of arrival: (units (unknown) date) EMS unknown) (unknown) (no (unknown) (unknown) Mother (units (unknown) date) Alzheimer's disease unknown) (unknown) (no (unknown) (unknown) Mumps (units (unkno wn) date) unknown) (unknown) (no (unknown) (unknown) NEURO:CN 2-12 (units (u nknown) date) intact, sensation unknown) normal, reflexes 2/4 upper and lower extremities (unknown) (no (unknown) (unknown) Narrative (units (unkn own) date) unknown) (unknown) (no (unknown) (unknown) No Action (units (unkn own) date) unknown) (unknown) (no (unknown) (unknown) Ordered: (units (unkno wn) date) unknown) (unknown) (no (unknown) (unknown) Orders (units (unkno wn) date) unknown) (unknown) (no (unknown) (unknown) Oxygen Delivery (units (unknown) date) Method 04/09/22 unknown) 07:50 (unknown) (no (unknown) (unknown) Oxygen Delivery (units (unknown) date) Method Room Air unknown) (unknown) (no (unknown) (unknown) Parkinsons disease (units (unknown) date) unknown) (unknown) (no (unknown) (unknown) Patient History (units (unknown) date) unknown) (unknown) (no (unknown) (unknown) Patient presents (units (unknown) date) today for spasms. unknown) Patient currently lives in a nursing (unknown) (no (unknown) (unknown) Patient: (units (unkno wn) date) Mary Dumont unknown) MR#: [id number] (unknown) (no (unknown) (unknown) Point of care (units ( unknown) date) testing: unknown) (unknown) (no (unknown) (unknown) Prescriptions: (units (unknown) date) unknown) (unknown) (no (unknown) (unknown) Pulse Oximetry 96 (units (unknown) date) 04/09/22 07:50 unknown) (unknown) (no (unknown) (unknown) Pulse Oximetry 96 (units (unknown) date) unknown) (unknown) (no (unknown) (unknown) Pulse Rate 57 L (units (unknown) date) 04/09/22 07:50 unknown) (unknown) (no (unknown) (unknown) Pulse Rate 57 L (units (unknown) date) unknown) (unknown) (no (unknown) (unknown) ROS Unobtainable: (units (unknown) date) All systems reviewed unknown) + are unremarkable except as noted in HPI (unknown) (no (unknown) (unknown) Recurrent sinusitis (unit s (unknown) date) (-1993) unknown) (unknown) (no (unknown) (unknown) Referrals: (units (unk nown) date) unknown) (unknown) (no (unknown) (unknown) Related Data (units (u nknown) date) unknown) (unknown) (no (unknown) (unknown) Respiratory Rate (units (unknown) date) 18 04/09/22 07:50 unknown) (unknown) (no (unknown) (unknown) Respiratory Rate 18 (unit s (unknown) date) unknown) (unknown) (no (unknown) (unknown) Restless leg (units (u nknown) date) syndrome () unknown) (unknown) (no (unknown) (unknown) Review of Systems (units (unknown) date) unknown) (unknown) (no (unknown) (unknown) SKIN: No rash, (units (unknown) date) erythema or other unknown) skin changes noted. (unknown) (no (unknown) (unknown) Shoulder pain (units ( unknown) date) () unknown) (unknown) (no (unknown) (unknown) Signed By: (units (unk nown) date) unknown) (unknown) (no (unknown) (unknown) Sister (units (unknown) date) Cancer unknown) (unknown) (no (unknown) (unknown) Smoking Status: (units (unknown) date) Former smoker unknown) (unknown) (no (unknown) (unknown) Smoking Status: (units (unknown) date) Former smoker unknown) (unknown) (no (unknown) (unknown) Social History (units (unknown) date) (Reviewed 04/09/22 @ unknown) 08:12 by Azul Leon DO) (unknown) (no (unknown) (unknown) Source: patient and (unit s (unknown) date) EMS unknown) (unknown) (no (unknown) (unknown) Stated complaint: (units (unknown) date) Spasms unknown) (unknown) (no (unknown) (unknown) Substance Use Type: (unit s (unknown) date) does not use unknown) (unknown) (no (unknown) (unknown) Substance abuse (units (unknown) date) unknown) (unknown) (no (unknown) (unknown) Surgical History (units (unknown) date) (Reviewed 04/09/22 @ unknown) 08:12 by Azul Leon DO) (unknown) (no (unknown) (unknown) Temperature 98.6 F (unit s (unknown) date) 04/09/22 07:50 unknown) (unknown) (no (unknown) (unknown) Temperature 98.6 F (units (unknown) date) unknown) (unknown) (no (unknown) (unknown) This is a (units (unkn own) date) 71-year-old male who unknown) comes to the emergency department with complaint (unknown) (no (unknown) (unknown) This is a (units (unkn own) date) 71-year-old male unknown) with known history of Parkinson's disease and BPH. (unknown) (no (unknown) (unknown) Time Seen by (units (u nknown) date) Provider: 04/09/22 unknown) 07:55 (unknown) (no (unknown) (unknown) Tinnitus (-2017) (units (unknown) date) unknown) (unknown) (no (unknown) (unknown) Urine Specific (units (unknown) date) [place] 1.025 unknown) (unknown) (no (unknown) (unknown) Vertigo () (units (unknown) date) unknown) (unknown) (no (unknown) (unknown) Vision disorder (units (unknown) date) unknown) (unknown) (no (unknown) (unknown) Vital Signs (units (un known) date) unknown) (unknown) (no (unknown) (unknown) Vital signs: (units (u nknown) date) unknown) (unknown) (no (unknown) (unknown) alcohol intake (units (unknown) date) frequency: 0-2 unknown) drinks per day (unknown) (no (unknown) (unknown) alzet PO 06/27/20 (units (unknown) date) 12/14/21 unknown) (unknown) (no (unknown) (unknown) and below (units (unkn own) date) unknown) (unknown) (no (unknown) (unknown) any point. (units (unk nown) date) unknown) (unknown) (no (unknown) (unknown) appears to be in (units (unknown) date) mild distress. unknown) Clear speech. (unknown) (no (unknown) (unknown) benzodiazepine. (units (unknown) date) Evaluated for unknown) infection. (unknown) (no (unknown) (unknown) body spasms they (units (unknown) date) have a finger cot unknown) why. Typically he has a tremor he does have (unknown) (no (unknown) (unknown) but states there (units (unknown) date) was no exact cause unknown) found he is on medications for Parkinson's, (unknown) (no (unknown) (unknown) calcium carbonate (units (unknown) date) 500 mg calcium 500 unknown) mg PO TID 12/14/21 12/14/21 (unknown) (no (unknown) (unknown) carbidopa ER 50 (units (unknown) date) mg-levodopa 200 mg 0 unknown) PO SEE INSTRUCTIONS #250 tabs 09/16/17 (unknown) (no (unknown) (unknown) chest pain or (units (u nknown) date) pressure. He has unknown) had some spasm in his muscles all over the cause (unknown) (no (unknown) (unknown) cholecalciferol (units (unknown) date) (vitamin D3) 50 50 unknown) mcg PO DAILY 12/14/21 12/14/21 (unknown) (no (unknown) (unknown) ciclopirox 8 % (units (unknown) date) topical solution 1 unknown) applic topical BEDTIME 12/14/21 12/14/21 (unknown) (no (unknown) (unknown) ciprofloxacin [From (unit s (unknown) date) Cipro] Allergy unknown) Verified 08/01/21 12:33 (unknown) (no (unknown) (unknown) codeine [CODEINE] (units (unknown) date) Allergy Severe unknown) unkown Unverified 08/01/21 12:33 (unknown) (no (unknown) (unknown) cyclobenzaprine 10 (units (unknown) date) mg tablet 10 mg PO unknown) TID PRN muscle spasm #14 07/29/21 (unknown) (no (unknown) (unknown) difficulty with (units (unknown) date) ambulation secondary unknown) to Parkinson's which he states is the (unknown) (no (unknown) (unknown) diphenhydramine HCl (unit s (unknown) date) 12.5 mg/5 mL ##0 unknown) 08/13/17 12/14/21 (unknown) (no (unknown) (unknown) distract him and (units (unknown) date) they would stop and unknown) they would also note that his O2 improved (unknown) (no (unknown) (unknown) electrolyte (units (un known) date) abnormalities, unknown) patient and I discussed trying a dose of oral (unknown) (no (unknown) (unknown) erythema, tonsillar (unit s (unknown) date) enlargement or unknown) uvular deviation, no facial droop. (unknown) (no (unknown) (unknown) extremities. No (units (unknown) date) obvious unknown) fasciculations or movements of his extremities (unknown) (no (unknown) (unknown) facility. He (units ( unknown) date) states he has not unknown) had any new dosing changes to his medications. (unknown) (no (unknown) (unknown) he is at least (units (unknown) date) part-time in a unknown) wheelchair. Labs were obtained to evaluate for (unknown) (no (unknown) (unknown) hydrocodone 5 (units ( unknown) date) mg-acetaminophen 325 unknown) 1 tab PO Q6H PRN pain #14 tabs 07/29/21 (unknown) (no (unknown) (unknown) is in a wheelchair. (unit s (unknown) date) Patient denies any unknown) fevers or chills. He states he has had (unknown) (no (unknown) (unknown) masses noted, no (units (unknown) date) hepatosplenomegaly unknown) (unknown) (no (unknown) (unknown) mcg (2,000 unit) (units (unknown) date) capsule unknown) (unknown) (no (unknown) (unknown) melatonin 10 mg (units (unknown) date) capsule 10 mg PO unknown) BEDTIME PRN 12/14/21 12/14/21 (unknown) (no (unknown) (unknown) meperidine [From (units (unknown) date) DEMEROL] Allergy unknown) Severe HYPOTHERMIA Unverified 08/01/21 12:33 (unknown) (no (unknown) (unknown) mg tablet (units (unkn own) date) unknown) (unknown) (no (unknown) (unknown) mild tremor and pill (unit s (unknown) date) rolling with his unknown) upper extremities mild tremor in his lower (unknown) (no (unknown) (unknown) mirabegron 25 mg (units (unknown) date) tablet,extended 25 unknown) mg PO DAILY #90 tabs 03/10/21 (unknown) (no (unknown) (unknown) movements are (units ( unknown) date) intact, nares are unknown) clear, Throat is clear without any exudates, (unknown) (no (unknown) (unknown) of full body spasms (unit s (unknown) date) patient does not unknown) have any witnessed seizure-like activity (unknown) (no (unknown) (unknown) omeprazole 20 mg (units (unknown) date) capsule,delayed 20 unknown) mg PO DAILY 06/23/20 12/14/21 (unknown) (no (unknown) (unknown) or bladder control. (units (unknown) date) No recent diarrhea. unknown) No new urinary issues, dysuria urgency (unknown) (no (unknown) (unknown) or frequency. He (units (unknown) date) does not appreciated unknown) any fevers. Patient traveled here with (unknown) (no (unknown) (unknown) oral liquid (units (un known) date) (Banophen Allergy) unknown) (unknown) (no (unknown) (unknown) otherwise. (units (unk nown) date) unknown) (unknown) (no (unknown) (unknown) per EMS during (units (unknown) date) these episodes. His unknown) O2 sat creases he is distractible during (unknown) (no (unknown) (unknown) reason he is in a (units (unknown) date) nursing facility. unknown) He sometimes uses a walker but other times (unknown) (no (unknown) (unknown) release (units (unkno wn) date) unknown) (unknown) (no (unknown) (unknown) release 24 hr (units ( unknown) date) (Myrbetriq) unknown) (unknown) (no (unknown) (unknown) some discomfort. He (unit s (unknown) date) denies any nausea or unknown) vomiting. He denies any loss of bowel (unknown) (no (unknown) (unknown) some nasal (units (unk nown) date) congestion starting unknown) yesterday, a mild cough. He denies any active (unknown) (no (unknown) (unknown) symmetrically (units ( unknown) date) unknown) (unknown) (no (unknown) (unknown) tablet,extended (units (unknown) date) release unknown) (unknown) (no (unknown) (unknown) tamsulosin 0.4 mg (units (unknown) date) capsule (Flomax) 0.4 unknown) mg PO BEDTIME #90 caps 12/29/21 (unknown) (no (unknown) (unknown) these episodes. (units (unknown) date) During discussion unknown) patient states he has had them once before (unknown) (no (unknown) (unknown) times daily. (units (u nknown) date) Patient states he unknown) has had prior episodes were he have sees full (unknown) (no (unknown) (unknown) upper and lower (units (unknown) date) extremities unknown) (unknown) (no (unknown) (unknown) with these episodes (units (unknown) date) occurred. Per EMS unknown) patient was not tachycardic or hypoxic at Result panel 3 (unknown) (no date) (unknown) (unknown) 0 /uL (unkn own) (unknown) (no date) (unknown) (unknown) 0.8 % (unkn own) (unknown) (no date) (unknown) (unknown) 1.8 % (unkn own) (unknown) (no date) (unknown) (unknown) 100 /uL (unkn own) (unknown) (no date) (unknown) (unknown) 1100 /uL (unkn own) (unknown) (no date) (unknown) (unknown) 12.4 g/dL (unkn own) (unknown) (no date) (unknown) (unknown) 14.0 % (unkn own) (unknown) (no date) (unknown) (unknown) 18.7 % (unkn own) (unknown) (no date) (unknown) (unknown) 192 X10 3/uL (unkn own) (unknown) (no date) (unknown) (unknown) 30.4 PG (unkn own) (unknown) (no date) (unknown) (unknown) 34.3 % (unkn own) (unknown) (no date) (unknown) (unknown) 36.1 % (unkn own) (unknown) (no date) (unknown) (unknown) 4.08 X10 6/uL (unkn own) (unknown) (no date) (unknown) (unknown) 400 /uL (unkn own) (unknown) (no date) (unknown) (unknown) 4300 /uL (unkn own) (unknown) (no date) (unknown) (unknown) 6.0 X10 3/uL (unkn own) (unknown) (no date) (unknown) (unknown) 6.9 % (unkn own) (unknown) (no date) (unknown) (unknown) 71.8 % (unkn own) (unknown) (no date) (unknown) (unknown) 88.6 fL (unkn own) Result panel 4 (unknown) (no date) (unknown) (unknown) 4.4 mmol/L (unkn own) Result panel 5 (unknown) (no date) (unknown) (unknown) > 60 mL/min (unkn own) (unknown) (no date) (unknown) (unknown) 0.88 mg/dL (unkn own) (unknown) (no date) (unknown) (unknown) 1.1 mg/dL (unkn own) (unknown) (no date) (unknown) (unknown) 1.9 (units unknown) (unknown) (unknown) (no date) (unknown) (unknown) 104 mmol/L (unkn own) (unknown) (no date) (unknown) (unknown) 135 mmol/L (unkn own) (unknown) (no date) (unknown) (unknown) 2.0 mg/dL (unkn own) (unknown) (no date) (unknown) (unknown) 2.3 g/dL (unkn own) (unknown) (no date) (unknown) (unknown) 25 mg/dL (unkn own) (unknown) (no date) (unknown) (unknown) 27 mmol/L (unkn own) (unknown) (no date) (unknown) (unknown) 28.4 (units unknown) (unknown) (unknown) (no date) (unknown) (unknown) 29 IU/L (unkn own) (unknown) (no date) (unknown) (unknown) 4.4 g/dL (unkn own) (unknown) (no date) (unknown) (unknown) 4.4 mmol/L (unkn own) (unknown) (no date) (unknown) (unknown) 5 IU/L (unkn own) (unknown) (no date) (unknown) (unknown) 6.7 g/dL (unkn own) (unknown) (no date) (unknown) (unknown) 66 U/L (unkn own) (unknown) (no date) (unknown) (unknown) 9.1 mg/dL (unkn own) (unknown) (no date) (unknown) (unknown) 93 mg/dL (unkn own) Result panel 6 (unknown) (no (unknown) (unknown) Qty: 0 (units (unkno wn) date) unknown) (unknown) (no (unknown) (unknown) (no value) (units (unk nown) date) unknown) (unknown) (no (unknown) (unknown) PO (units (unkno wn) date) unknown) (unknown) (no (unknown) (unknown) Date of Service: (units (unknown) date) 04/09/22 unknown) (unknown) (no (unknown) (unknown) (no value) (units (unk nown) date) unknown) (unknown) (no (unknown) (unknown) 0 PO SEE (units (unkn own) date) INSTRUCTIONS Qty: unknown) 250 3RF (unknown) (no (unknown) (unknown) 0.4 mg PO BEDTIME (units (unknown) date) Qty: 90 3RF unknown) (unknown) (no (unknown) (unknown) 04/09/22 08:22 (units (unknown) date) unknown) (unknown) (no (unknown) (unknown) 1 applic topical (units (unknown) date) BEDTIME unknown) (unknown) (no (unknown) (unknown) 1 mg PO BID PRN (units (unknown) date) (Reason: muscle unknown) spasticity) Qty: 14 0RF (unknown) (no (unknown) (unknown) 1 tab PO Q6H PRN (units (unknown) date) (Reason: pain) Qty: unknown) 14 0RF (unknown) (no (unknown) (unknown) 10 mg PO BEDTIME (units (unknown) date) PRN unknown) (unknown) (no (unknown) (unknown) 10 mg PO TID PRN (units (unknown) date) (Reason: muscle unknown) spasm) Qty: 14 0RF (unknown) (no (unknown) (unknown) 20 mg PO DAILY (units (unknown) date) unknown) (unknown) (no (unknown) (unknown) 25 mg PO DAILY Qty: (unit s (unknown) date) 90 3RF unknown) (unknown) (no (unknown) (unknown) 50 mcg PO DAILY (units (unknown) date) unknown) (unknown) (no (unknown) (unknown) 500 mg PO TID (units ( unknown) date) unknown) (unknown) (no (unknown) (unknown) Allergies (units (unkn own) date) unknown) (unknown) (no (unknown) (unknown) Documented By: ES (units (unknown) date) unknown) (unknown) (no (unknown) (unknown) ED Orders (units (unkn own) date) unknown) (unknown) (no (unknown) (unknown) Emergency Report (units (unknown) date) unknown) (unknown) (no (unknown) (unknown) Home Medications (units (unknown) date) unknown) (unknown) (no (unknown) (unknown) [facility] (units (unknown) date) [address] [place] [address] unknown) [place] [address] (unknown) (no (unknown) (unknown) Lab Results (units (un known) date) unknown) (unknown) (no (unknown) (unknown) Last Admin: (units (un known) date) 04/09/22 08:33 unknown) Dose: 1 mg (unknown) (no (unknown) (unknown) Previous Rx's (units ( unknown) date) unknown) (unknown) (no (unknown) (unknown) Stop: 04/09/22 (units (unknown) date) 08:10 unknown) (unknown) (no (unknown) (unknown) Urine Dip (units (unkn own) date) unknown) (unknown) (no (unknown) (unknown) Vital Signs - 8 hr (units (unknown) date) unknown) (unknown) (no (unknown) (unknown) (no value) (units (unk nown) date) unknown) (unknown) (no (unknown) (unknown) 04/09/22 04/09/22 (units (unknown) date) Range/Units unknown) (unknown) (no (unknown) (unknown) 08:22 08:22 (units (un known) date) unknown) (unknown) (no (unknown) (unknown) Myrbetriq 25 mg (units (unknown) date) tablet extended unknown) release 24 hr (unknown) (no (unknown) (unknown) alzet (units (unkno wn) date) unknown) (unknown) (no (unknown) (unknown) calcium carbonate (units (unknown) date) 500 mg calcium unknown) (1,250 mg) tablet (unknown) (no (unknown) (unknown) carbidopa-levodopa (units (unknown) date) 50 MG/200 MG tablet unknown) extended release (unknown) (no (unknown) (unknown) cholecalciferol (units (unknown) date) (vitamin D3) 50 mcg unknown) (2,000 unit) capsule (unknown) (no (unknown) (unknown) ciclopirox 8 % (units (unknown) date) solution unknown) (unknown) (no (unknown) (unknown) cyclobenzaprine 10 (units (unknown) date) mg tablet unknown) (unknown) (no (unknown) (unknown) diphenhydramine HCl (unit s (unknown) date) [Banophen Allergy] unknown) 12.5 MG/5 ML liquid (unknown) (no (unknown) (unknown) hydrocodone-acetami (unit s (unknown) date) nophen 5-325 mg unknown) tablet (unknown) (no (unknown) (unknown) lorazepam [Ativan] (units (unknown) date) 1 mg tablet unknown) (unknown) (no (unknown) (unknown) melatonin 10 mg (units (unknown) date) capsule unknown) (unknown) (no (unknown) (unknown) omeprazole 20 mg (units (unknown) date) capsule,delayed unknown) release(DR/EC) (unknown) (no (unknown) (unknown) tamsulosin [Flomax] (unit s (unknown) date) 0.4 mg capsule unknown) (unknown) (no (unknown) (unknown) #14 tabs (units (unkno wn) date) unknown) (unknown) (no (unknown) (unknown) 04/09/22 (units (unkno wn) date) unknown) (unknown) (no (unknown) (unknown) Medication (units (unk nown) date) Instructions unknown) Recorded (unknown) (no (unknown) (unknown) Medication (units (unk nown) date) Instructions unknown) Recorded Confirmed (unknown) (no (unknown) (unknown) Muscle spasm (units (u nknown) date) unknown) (unknown) (no (unknown) (unknown) tabs (units (unkno wn) date) unknown) (unknown) (no (unknown) (unknown) (1,250 mg) tablet (units (unknown) date) unknown) (unknown) (no (unknown) (unknown) 01/14/2022 with no (units (unknown) date) change. unknown) (unknown) (no (unknown) (unknown) 04/09/22 07:55 (units (unknown) date) unknown) (unknown) (no (unknown) (unknown) 04/09/22 08:22 (units (unknown) date) unknown) (unknown) (no (unknown) (unknown) 07:43 (units (unkno wn) date) unknown) (unknown) (no (unknown) (unknown) 07:43 04/09/22 (units (unknown) date) unknown) (unknown) (no (unknown) (unknown) 07:50 04/09/22 (units (unknown) date) unknown) (unknown) (no (unknown) (unknown) 08:00 04/09/22 (units (unknown) date) unknown) (unknown) (no (unknown) (unknown) 08:30 04/09/22 (units (unknown) date) unknown) (unknown) (no (unknown) (unknown) 11:10 (units (unkno wn) date) unknown) (unknown) (no (unknown) (unknown) 11:11 (units (unkno wn) date) unknown) (unknown) (no (unknown) (unknown) 11:11 04/09/22 (units (unknown) date) unknown) (unknown) (no (unknown) (unknown) [id number] (units (unkno wn) date) unknown) (unknown) (no (unknown) (unknown) 449. No acute ST (units (unknown) date) elevation or unknown) depression noted. Patient has prior from (unknown) (no (unknown) (unknown) ABD:bowel sounds (units (unknown) date) normal, soft, unknown) non-tender, no guarding, rebound, rigidity, no (unknown) (no (unknown) (unknown) ADHD (units (unkno wn) date) unknown) (unknown) (no (unknown) (unknown) ALT 5 (<50) (units (unknown) date) IU/L unknown) (unknown) (no (unknown) (unknown) AST 29 (17-59) (units (unknown) date) IU/L unknown) (unknown) (no (unknown) (unknown) Acne (-1962) (units (u nknown) date) unknown) (unknown) (no (unknown) (unknown) Activity (units (unkno wn) date) Restrictions/Additio unknown) nal Instructions: (unknown) (no (unknown) (unknown) Age/Sex: 71 / M (units (unknown) date) unknown) (unknown) (no (unknown) (unknown) Albumin 4.4 (units ( unknown) date) (3.5-5.0) g/dL unknown) (unknown) (no (unknown) (unknown) Albumin/Globulin (units (unknown) date) Ratio 1.9 unknown) (1.0-2.8) (unknown) (no (unknown) (unknown) Alkaline (units (unkno wn) date) Phosphatase 66 unknown) (38-126) U/L (unknown) (no (unknown) (unknown) Allergy/AdvReac (units (unknown) date) Type Severity unknown) Reaction Status Date / Time (unknown) (no (unknown) (unknown) Anesthesia (units (unk nown) date) unknown) (unknown) (no (unknown) (unknown) Attestation: I (units (unknown) date) personally reviewed unknown) and interpreted this ECG as follows: (unknown) (no (unknown) (unknown) BPH (benign (units (un known) date) prostatic unknown) hyperplasia) (unknown) (no (unknown) (unknown) BPH w urinary (units ( unknown) date) obs/LUTS unknown) (unknown) (no (unknown) (unknown) BUN 25 H (9-20) (units (unknown) date) mg/dL unknown) (unknown) (no (unknown) (unknown) BUN/Creatinine (units (unknown) date) Ratio 28.4 H unknown) (6-22) (unknown) (no (unknown) (unknown) Baso # (Auto) 0 (units (unknown) date) (0-100) /uL unknown) (unknown) (no (unknown) (unknown) Baso % (Auto) 0.8 (units (unknown) date) (0-2) % unknown) (unknown) (no (unknown) (unknown) Bedside Urine (units ( unknown) date) Bilirubin - unknown) Negative (unknown) (no (unknown) (unknown) Bedside Urine (units ( unknown) date) Glucose Negative unknown) (unknown) (no (unknown) (unknown) Bedside Urine (units ( unknown) date) Ketone - Negative unknown) (unknown) (no (unknown) (unknown) Bedside Urine (units ( unknown) date) Leukocytes - unknown) Negative (unknown) (no (unknown) (unknown) Bedside Urine (units ( unknown) date) Nitrite - unknown) Negative (unknown) (no (unknown) (unknown) Bedside Urine (units ( unknown) date) Occult Blood - unknown) Negative (unknown) (no (unknown) (unknown) Bedside Urine (units ( unknown) date) Protein - unknown) Negative (unknown) (no (unknown) (unknown) Bedside Urine (units ( unknown) date) Urobilinogen - unknown) Negative (unknown) (no (unknown) (unknown) Bedside Urine pH (units (unknown) date) 6.0 unknown) (unknown) (no (unknown) (unknown) Blood Pressure (units (unknown) date) unknown) (unknown) (no (unknown) (unknown) Blood Pressure (units (unknown) date) 166/82 H unknown) (unknown) (no (unknown) (unknown) Blood Pressure (units (unknown) date) 170/78 H 04/09/22 unknown) 07:43 (unknown) (no (unknown) (unknown) Blood Pressure (units (unknown) date) 170/78 H 170/78 H unknown) (unknown) (no (unknown) (unknown) Broken arm (-1965) (units (unknown) date) unknown) (unknown) (no (unknown) (unknown) CBC Auto Diff (units ( unknown) date) [Complete Blood unknown) Count AUTO DIFF] Stat (unknown) (no (unknown) (unknown) CMP [Comprehensive (units (unknown) date) Metabolic Panel] unknown) Stat (unknown) (no (unknown) (unknown) Calcium 9.1 (units ( unknown) date) (8.4-10.2) mg/dL unknown) (unknown) (no (unknown) (unknown) Carbon Dioxide 27 (unit s (unknown) date) (22-32) mmol/L unknown) (unknown) (no (unknown) (unknown) Cataracts, (units (unk nown) date) bilateral () unknown) (unknown) (no (unknown) (unknown) Chicken pox (units (un known) date) unknown) (unknown) (no (unknown) (unknown) Chief complaint: (units (unknown) date) Weakness unknown) (unknown) (no (unknown) (unknown) Chloride 104 (units (unknown) date) (98-107) mmol/L unknown) (unknown) (no (unknown) (unknown) Chronic back pain (units (unknown) date) () unknown) (unknown) (no (unknown) (unknown) Clinical (units (unkno wn) date) Impression: unknown) (unknown) (no (unknown) (unknown) Course (units (unkno wn) date) unknown) (unknown) (no (unknown) (unknown) Creatinine 0.88 (units (unknown) date) (0.66-1.25) mg/dL unknown) (unknown) (no (unknown) (unknown) : 1950 (units (unknown) date) Acct:[id number] unknown) (unknown) (no (unknown) (unknown) Departure (units (unkn own) date) unknown) (unknown) (no (unknown) (unknown) Depression () (units (unknown) date) unknown) (unknown) (no (unknown) (unknown) Discharge Plan (units (unknown) date) unknown) (unknown) (no (unknown) (unknown) Discontinued (units (u nknown) date) Medications unknown) (unknown) (no (unknown) (unknown) ECG Data (units (unkno wn) date) unknown) (unknown) (no (unknown) (unknown) EKG-12 Lead Stat (units (unknown) date) unknown) (unknown) (no (unknown) (unknown) EMS and they state (units (unknown) date) that he would have unknown) episodes of spasms they were able to (unknown) (no (unknown) (unknown) ER Physician: (units ( unknown) date) Mank,Azul C D.O. unknown) (unknown) (no (unknown) (unknown) Eczema (-1958) (units (unknown) date) unknown) (unknown) (no (unknown) (unknown) Elevated PSA (units (u nknown) date) unknown) (unknown) (no (unknown) (unknown) Eos # (Auto) 100 (units (unknown) date) (0-450) /uL unknown) (unknown) (no (unknown) (unknown) Eos % (Auto) 1.8 L (unit s (unknown) date) (2-4) % unknown) (unknown) (no (unknown) (unknown) Esterase (units (unkno wn) date) unknown) (unknown) (no (unknown) (unknown) Estimated GFR > (units (unknown) date) 60 (>60) mL/min unknown) (unknown) (no (unknown) (unknown) Exam (units (unkno wn) date) unknown) (unknown) (no (unknown) (unknown) Exam Narrative: (units (unknown) date) unknown) (unknown) (no (unknown) (unknown) Family History (units (unknown) date) (Reviewed 04/09/22 @ unknown) 08:12 by Azul Leon DO) (unknown) (no (unknown) (unknown) Family history of (units (unknown) date) prostate cancer unknown) (unknown) (no (unknown) (unknown) Father (units (unknown) date) Stroke unknown) (unknown) (no (unknown) (unknown) Foot pain (-1964) (units (unknown) date) unknown) (unknown) (no (unknown) (unknown) GEN: well (units (unkn own) date) nourished, well unknown) appearing male, alert and oriented x 3, patient (unknown) (no (unknown) (unknown) GERD (units (unkno wn) date) (gastroesophageal unknown) reflux disease) () (unknown) (no (unknown) (unknown) :No CVA (units (unkn own) date) tenderness unknown) (unknown) (no (unknown) (unknown) Marilin Kam MD (unit s (unknown) date) [Primary Care unknown) Provider] - (unknown) (no (unknown) (unknown) Gastric ulcer (units ( unknown) date) () unknown) (unknown) (no (unknown) (unknown) General (units (unkno wn) date) unknown) (unknown) (no (unknown) (unknown) GenericComposite[Pl (unit s (unknown) date) t Count 192 unknown) (150-400) X10^3/uL ] (unknown) (no (unknown) (unknown) GenericComposite[RB (unit s (unknown) date) C 4.08 L unknown) (4.5-5.9) X10^6/uL ] (unknown) (no (unknown) (unknown) GenericComposite[WB (unit s (unknown) date) C 6.0 (4.5-11.0) unknown) X10^3/uL ] (unknown) (no (unknown) (unknown) Globulin 2.3 (units (unknown) date) (1.7-4.1) g/dL unknown) (unknown) (no (unknown) (unknown) Glucose 93 (units (u nknown) date) (80-110) mg/dL unknown) (unknown) (no (unknown) (unknown) HEART: Regular rate (units (unknown) date) and rhythm without unknown) murmur, clicks, rubs. Pulses are equal in (unknown) (no (unknown) (unknown) HEENT: Atraumatic, (units (unknown) date) pupils are equal unknown) round reactive to light, extraocular (unknown) (no (unknown) (unknown) HPI - General Adult (unit s (unknown) date) unknown) (unknown) (no (unknown) (unknown) HPI narrative: (units (unknown) date) unknown) (unknown) (no (unknown) (unknown) Hct 36.1 L (units (un known) date) (41-53) % unknown) (unknown) (no (unknown) (unknown) He is unsure if he (units (unknown) date) has had his a.m. unknown) Parkinson's medications he does take them 4 (unknown) (no (unknown) (unknown) Hearing loss (units (u nknown) date) (-1990) unknown) (unknown) (no (unknown) (unknown) Hemorrhoid (-1985) (units (unknown) date) unknown) (unknown) (no (unknown) (unknown) Hepatitis A (-1988) (unit s (unknown) date) unknown) (unknown) (no (unknown) (unknown) Hgb 12.4 L (units (un known) date) (13.5-17.5) g/dL unknown) (unknown) (no (unknown) (unknown) History of Present (units (unknown) date) Illness unknown) (unknown) (no (unknown) (unknown) If you find it (units (unknown) date) helpful you can take unknown) the medication prescribed today 1-2 times (unknown) (no (unknown) (unknown) Initial Vital Signs (unit s (unknown) date) unknown) (unknown) (no (unknown) (unknown) Initial Vital (units ( unknown) date) Signs: unknown) (unknown) (no (unknown) (unknown) Interpretation: (units (unknown) date) unknown) (unknown) (no (unknown) (unknown) LUNGS:Lungs clear (units (unknown) date) to auscultation, no unknown) wheezes, rales, crackles, chest moves (unknown) (no (unknown) (unknown) Lab Data (units (unkno wn) date) unknown) (unknown) (no (unknown) (unknown) Labs: (units (unkno wn) date) unknown) (unknown) (no (unknown) (unknown) Left bundle branch (units (unknown) date) block sinus unknown) bradycardia rate of 57 TN 200 QRS of 140 QTC of (unknown) (no (unknown) (unknown) Limitations: no (units (unknown) date) limitations unknown) (unknown) (no (unknown) (unknown) Lorazepam (units (unkn own) date) (Lorazepam 0.5 Mg unknown) Tablet) 1 mg PO NOW ONE (unknown) (no (unknown) (unknown) Lymph # (Auto) (units (unknown) date) 1100 (3549-7673) unknown) /uL (unknown) (no (unknown) (unknown) Lymph % (Auto) (units (unknown) date) 18.7 L (25-40) % unknown) (unknown) (no (unknown) (unknown) MAG [Magnesium] (units (unknown) date) Stat unknown) (unknown) (no (unknown) (unknown) MCH 30.4 (26-34) (unit s (unknown) date) PG unknown) (unknown) (no (unknown) (unknown) MCHC 34.3 (units (unk nown) date) (30-36) % unknown) (unknown) (no (unknown) (unknown) MCV 88.6 (units (unkn own) date) (80-100) fL unknown) (unknown) (no (unknown) (unknown) MDM Narrative (units ( unknown) date) unknown) (unknown) (no (unknown) (unknown) MSCL: Non-tender, (units (unknown) date) no muscle atrophy, unknown) patient is lying on his side, he has some (unknown) (no (unknown) (unknown) Magnesium 2.0 (units (unknown) date) (1.6-2.3) mg/dL unknown) (unknown) (no (unknown) (unknown) Measles (units (unkno wn) date) unknown) (unknown) (no (unknown) (unknown) Medical Decision (units (unknown) date) Making unknown) (unknown) (no (unknown) (unknown) Medical History (units (unknown) date) (Reviewed 04/09/22 @ unknown) 08:12 by Azul Leon DO) (unknown) (no (unknown) (unknown) Medical decision (units (unknown) date) making narrative: unknown) (unknown) (no (unknown) (unknown) Mode of arrival: (units (unknown) date) EMS unknown) (unknown) (no (unknown) (unknown) [place] # (Auto) 400 (units (unknown) date) (0-900) /uL unknown) (unknown) (no (unknown) (unknown) [place] % (Auto) 6.9 (units (unknown) date) (3-14) % unknown) (unknown) (no (unknown) (unknown) Mother (units (unknown) date) Alzheimer's disease unknown) (unknown) (no (unknown) (unknown) Mumps (units (unkno wn) date) unknown) (unknown) (no (unknown) (unknown) NEURO:CN 2-12 (units (u nknown) date) intact, sensation unknown) normal, reflexes 2/4 upper and lower extremities (unknown) (no (unknown) (unknown) Narrative (units (unkn own) date) unknown) (unknown) (no (unknown) (unknown) Neut # (Auto) 4300 (unit s (unknown) date) (4563-3737) /uL unknown) (unknown) (no (unknown) (unknown) Neut % (Auto) 71.8 (unit s (unknown) date) (50-75) % unknown) (unknown) (no (unknown) (unknown) New (units (unkno wn) date) unknown) (unknown) (no (unknown) (unknown) No Action (units (unkn own) date) unknown) (unknown) (no (unknown) (unknown) Ordered: (units (unkno wn) date) unknown) (unknown) (no (unknown) (unknown) Orders (units (unkno wn) date) unknown) (unknown) (no (unknown) (unknown) Oxygen Delivery (units (unknown) date) Method unknown) (unknown) (no (unknown) (unknown) Oxygen Delivery (units (unknown) date) Method unknown) (unknown) (no (unknown) (unknown) Oxygen Delivery (units (unknown) date) Method Room Air unknown) (unknown) (no (unknown) (unknown) Parkinsons disease (units (unknown) date) unknown) (unknown) (no (unknown) (unknown) Patient (units (unkno wn) date) Disposition: Home unknown) (unknown) (no (unknown) (unknown) Patient History (units (unknown) date) unknown) (unknown) (no (unknown) (unknown) Patient presents (units (unknown) date) today for spasms. unknown) Patient currently lives in a nursing (unknown) (no (unknown) (unknown) Patient: (units (unkno wn) date) Mary Dumont J unknown) MR#: [id number] (unknown) (no (unknown) (unknown) Please follow-up (units (unknown) date) with your unknown) neurologist if you are having persistent symptoms. (unknown) (no (unknown) (unknown) Please return for (units (unknown) date) fevers, altered unknown) mental status, new chest pain or shortness of (unknown) (no (unknown) (unknown) Point of care (units ( unknown) date) testing: unknown) (unknown) (no (unknown) (unknown) Potassium 4.4 (units (unknown) date) (3.4-5.1) mmol/L unknown) (unknown) (no (unknown) (unknown) Prescription (units (u nknown) date) printed. unknown) (unknown) (no (unknown) (unknown) Prescriptions: (units (unknown) date) unknown) (unknown) (no (unknown) (unknown) Pulse Oximetry 96 (units (unknown) date) 04/09/22 07:43 unknown) (unknown) (no (unknown) (unknown) Pulse Oximetry 94 (units (unknown) date) unknown) (unknown) (no (unknown) (unknown) Pulse Oximetry 95 (units (unknown) date) 93 95 unknown) (unknown) (no (unknown) (unknown) Pulse Oximetry 96 (units (unknown) date) 96 unknown) (unknown) (no (unknown) (unknown) Pulse Rate 54 L (units (unknown) date) 04/09/22 07:43 unknown) (unknown) (no (unknown) (unknown) Pulse Rate 57 L 54 (unit s (unknown) date) L unknown) (unknown) (no (unknown) (unknown) Pulse Rate 58 L (units (unknown) date) unknown) (unknown) (no (unknown) (unknown) Pulse Rate 73 57 L (units (unknown) date) unknown) (unknown) (no (unknown) (unknown) RDW 14.0 (units (unkn own) date) (11.6-14.8) % unknown) (unknown) (no (unknown) (unknown) ROS Unobtainable: (units (unknown) date) All systems reviewed unknown) + are unremarkable except as noted in HPI (unknown) (no (unknown) (unknown) Recurrent sinusitis (unit s (unknown) date) (-1993) unknown) (unknown) (no (unknown) (unknown) Referrals: (units (unk nown) date) unknown) (unknown) (no (unknown) (unknown) Related Data (units (u nknown) date) unknown) (unknown) (no (unknown) (unknown) Respiratory Rate (units (unknown) date) unknown) (unknown) (no (unknown) (unknown) Respiratory Rate (units (unknown) date) unknown) (unknown) (no (unknown) (unknown) Respiratory Rate 18 (unit s (unknown) date) unknown) (unknown) (no (unknown) (unknown) Restless leg (units (u nknown) date) syndrome (-2014) unknown) (unknown) (no (unknown) (unknown) Result diagrams: (units (unknown) date) unknown) (unknown) (no (unknown) (unknown) Review of Systems (units (unknown) date) unknown) (unknown) (no (unknown) (unknown) SKIN: No rash, (units (unknown) date) erythema or other unknown) skin changes noted. (unknown) (no (unknown) (unknown) Shoulder pain (units ( unknown) date) () unknown) (unknown) (no (unknown) (unknown) Signed By: (units (unk nown) date) unknown) (unknown) (no (unknown) (unknown) Sister (units (unknown) date) Cancer unknown) (unknown) (no (unknown) (unknown) Smoking Status: (units (unknown) date) Former smoker unknown) (unknown) (no (unknown) (unknown) Smoking Status: (units (unknown) date) Former smoker unknown) (unknown) (no (unknown) (unknown) Social History (units (unknown) date) (Reviewed 04/09/22 @ unknown) 08:12 by Azul Leon DO) (unknown) (no (unknown) (unknown) Sodium 135 L (units (unknown) date) (137-145) mmol/L unknown) (unknown) (no (unknown) (unknown) Source: patient and (unit s (unknown) date) EMS unknown) (unknown) (no (unknown) (unknown) Stated complaint: (units (unknown) date) Spasms unknown) (unknown) (no (unknown) (unknown) Substance Use Type: (unit s (unknown) date) does not use unknown) (unknown) (no (unknown) (unknown) Substance abuse (units (unknown) date) unknown) (unknown) (no (unknown) (unknown) Surgical History (units (unknown) date) (Reviewed 04/09/22 @ unknown) 08:12 by Azul Leon DO) (unknown) (no (unknown) (unknown) Temperature (units (un known) date) unknown) (unknown) (no (unknown) (unknown) Temperature (units (un known) date) unknown) (unknown) (no (unknown) (unknown) Temperature 98.6 F (units (unknown) date) unknown) (unknown) (no (unknown) (unknown) This is a (units (unkn own) date) 71-year-old male who unknown) comes to the emergency department with complaint (unknown) (no (unknown) (unknown) This is a (units (unkn own) date) 71-year-old male unknown) with known history of Parkinson's disease and BPH. (unknown) (no (unknown) (unknown) Time Seen by (units (u nknown) date) Provider: 04/09/22 unknown) 07:55 (unknown) (no (unknown) (unknown) Tinnitus (-2017) (units (unknown) date) unknown) (unknown) (no (unknown) (unknown) Today you have not (units (unknown) date) been found being unknown) having any new acute neurologic changes, (unknown) (no (unknown) (unknown) Total Bilirubin (units (unknown) date) 1.1 (0.2-1.3) unknown) mg/dL (unknown) (no (unknown) (unknown) Total Protein 6.7 (unit s (unknown) date) (6.3-8.2) g/dL unknown) (unknown) (no (unknown) (unknown) Urine Specific (units (unknown) date) [place] 1.025 unknown) (unknown) (no (unknown) (unknown) Vertigo () (units (unknown) date) unknown) (unknown) (no (unknown) (unknown) Vision disorder (units (unknown) date) unknown) (unknown) (no (unknown) (unknown) Vital Signs (units (un known) date) unknown) (unknown) (no (unknown) (unknown) Vital signs: (units (u nknown) date) unknown) (unknown) (no (unknown) (unknown) [Embedded Image Not (unit s (unknown) date) Available] unknown) (unknown) (no (unknown) (unknown) alcohol intake (units (unknown) date) frequency: 0-2 unknown) drinks per day (unknown) (no (unknown) (unknown) alzet PO 06/27/20 (units (unknown) date) 12/14/21 unknown) (unknown) (no (unknown) (unknown) and below (units (unkn own) date) unknown) (unknown) (no (unknown) (unknown) any point. (units (unk nown) date) unknown) (unknown) (no (unknown) (unknown) appears to be in (units (unknown) date) mild distress. unknown) Clear speech. (unknown) (no (unknown) (unknown) benzodiazepine. (units (unknown) date) Evaluated for unknown) infection. (unknown) (no (unknown) (unknown) body spasms they (units (unknown) date) have a finger cot unknown) why. Typically he has a tremor he does have (unknown) (no (unknown) (unknown) breath, persistent (units (unknown) date) vomiting, or other unknown) new or concerning symptoms. (unknown) (no (unknown) (unknown) but states there (units (unknown) date) was no exact cause unknown) found he is on medications for Parkinson's, (unknown) (no (unknown) (unknown) calcium carbonate (units (unknown) date) 500 mg calcium 500 unknown) mg PO TID 12/14/21 12/14/21 (unknown) (no (unknown) (unknown) carbidopa ER 50 (units (unknown) date) mg-levodopa 200 mg 0 unknown) PO SEE INSTRUCTIONS #250 tabs 09/16/17 (unknown) (no (unknown) (unknown) chest pain or (units (u nknown) date) pressure. He has unknown) had some spasm in his muscles all over the cause (unknown) (no (unknown) (unknown) cholecalciferol (units (unknown) date) (vitamin D3) 50 50 unknown) mcg PO DAILY 12/14/21 12/14/21 (unknown) (no (unknown) (unknown) ciclopirox 8 % (units (unknown) date) topical solution 1 unknown) applic topical BEDTIME 12/14/21 12/14/21 (unknown) (no (unknown) (unknown) ciprofloxacin [From (unit s (unknown) date) Cipro] Allergy unknown) Verified 08/01/21 12:33 (unknown) (no (unknown) (unknown) codeine [CODEINE] (units (unknown) date) Allergy Severe unknown) unkown Unverified 08/01/21 12:33 (unknown) (no (unknown) (unknown) cyclobenzaprine 10 (units (unknown) date) mg tablet 10 mg PO unknown) TID PRN muscle spasm #14 07/29/21 (unknown) (no (unknown) (unknown) daily as needed. (units (unknown) date) This medication can unknown) make you sleepy. (unknown) (no (unknown) (unknown) difficulty with (units (unknown) date) ambulation secondary unknown) to Parkinson's which he states is the (unknown) (no (unknown) (unknown) diphenhydramine HCl (unit s (unknown) date) 12.5 mg/5 mL ##0 unknown) 08/13/17 12/14/21 (unknown) (no (unknown) (unknown) distract him and (units (unknown) date) they would stop and unknown) they would also note that his O2 improved (unknown) (no (unknown) (unknown) electrolyte (units (un known) date) abnormalities, unknown) patient and I discussed trying a dose of oral (unknown) (no (unknown) (unknown) erythema, tonsillar (unit s (unknown) date) enlargement or unknown) uvular deviation, no facial droop. (unknown) (no (unknown) (unknown) extremities. No (units (unknown) date) obvious unknown) fasciculations or movements of his extremities (unknown) (no (unknown) (unknown) facility. He (units ( unknown) date) states he has not unknown) had any new dosing changes to his medications. (unknown) (no (unknown) (unknown) he is at least (units (unknown) date) part-time in a unknown) wheelchair. Labs were obtained to evaluate for (unknown) (no (unknown) (unknown) hydrocodone 5 (units ( unknown) date) mg-acetaminophen 325 unknown) 1 tab PO Q6H PRN pain #14 tabs 07/29/21 (unknown) (no (unknown) (unknown) is in a wheelchair. (unit s (unknown) date) Patient denies any unknown) fevers or chills. He states he has had (unknown) (no (unknown) (unknown) lorazepam 1 mg (units (unknown) date) tablet (Ativan) 1 mg unknown) PO BID PRN muscle spasticity 04/09/22 (unknown) (no (unknown) (unknown) masses noted, no (units (unknown) date) hepatosplenomegaly unknown) (unknown) (no (unknown) (unknown) mcg (2,000 unit) (units (unknown) date) capsule unknown) (unknown) (no (unknown) (unknown) melatonin 10 mg (units (unknown) date) capsule 10 mg PO unknown) BEDTIME PRN 12/14/21 12/14/21 (unknown) (no (unknown) (unknown) meperidine [From (units (unknown) date) DEMEROL] Allergy unknown) Severe HYPOTHERMIA Unverified 08/01/21 12:33 (unknown) (no (unknown) (unknown) mg tablet (units (unkn own) date) unknown) (unknown) (no (unknown) (unknown) mild tremor and pill (unit s (unknown) date) rolling with his unknown) upper extremities mild tremor in his lower (unknown) (no (unknown) (unknown) mirabegron 25 mg (units (unknown) date) tablet,extended 25 unknown) mg PO DAILY #90 tabs 03/10/21 (unknown) (no (unknown) (unknown) movements are (units ( unknown) date) intact, nares are unknown) clear, Throat is clear without any exudates, (unknown) (no (unknown) (unknown) of full body spasms (unit s (unknown) date) patient does not unknown) have any witnessed seizure-like activity (unknown) (no (unknown) (unknown) omeprazole 20 mg (units (unknown) date) capsule,delayed 20 unknown) mg PO DAILY 06/23/20 12/14/21 (unknown) (no (unknown) (unknown) or bladder control. (units (unknown) date) No recent diarrhea. unknown) No new urinary issues, dysuria urgency (unknown) (no (unknown) (unknown) or frequency. He (units (unknown) date) does not appreciated unknown) any fevers. Patient traveled here with (unknown) (no (unknown) (unknown) oral liquid (units (un known) date) (Banophen Allergy) unknown) (unknown) (no (unknown) (unknown) otherwise. (units (unk nown) date) unknown) (unknown) (no (unknown) (unknown) per EMS during (units (unknown) date) these episodes. His unknown) O2 sat creases he is distractible during (unknown) (no (unknown) (unknown) please continue (units (unknown) date) your home unknown) medications particularly a Parkinson's medications as (unknown) (no (unknown) (unknown) prescribed. (units (un known) date) unknown) (unknown) (no (unknown) (unknown) reason he is in a (units (unknown) date) nursing facility. unknown) He sometimes uses a walker but other times (unknown) (no (unknown) (unknown) release (units (unkno wn) date) unknown) (unknown) (no (unknown) (unknown) release 24 hr (units ( unknown) date) (Myrbetriq) unknown) (unknown) (no (unknown) (unknown) some discomfort. He (unit s (unknown) date) denies any nausea or unknown) vomiting. He denies any loss of bowel (unknown) (no (unknown) (unknown) some nasal (units (unk nown) date) congestion starting unknown) yesterday, a mild cough. He denies any active (unknown) (no (unknown) (unknown) symmetrically (units ( unknown) date) unknown) (unknown) (no (unknown) (unknown) tablet,extended (units (unknown) date) release unknown) (unknown) (no (unknown) (unknown) tamsulosin 0.4 mg (units (unknown) date) capsule (Flomax) 0.4 unknown) mg PO BEDTIME #90 caps 12/29/21 (unknown) (no (unknown) (unknown) these episodes. (units (unknown) date) During discussion unknown) patient states he has had them once before (unknown) (no (unknown) (unknown) times daily. (units (u nknown) date) Patient states he unknown) has had prior episodes were he have sees full (unknown) (no (unknown) (unknown) upper and lower (units (unknown) date) extremities unknown) (unknown) (no (unknown) (unknown) with these episodes (units (unknown) date) occurred. Per EMS unknown) patient was not tachycardic or hypoxic at Result panel 7 (unknown) (no (unknown) (unknown) Qty: 0 (units (unkno wn) date) unknown) (unknown) (no (unknown) (unknown) (no value) (units (unk nown) date) unknown) (unknown) (no (unknown) (unknown) PO (units (unkno wn) date) unknown) (unknown) (no (unknown) (unknown) Date of Service: (units (unknown) date) 04/09/22 unknown) (unknown) (no (unknown) (unknown) (no value) (units (unk nown) date) unknown) (unknown) (no (unknown) (unknown) <Electronically (units (unknown) date) signed by Azul Saha unknown) Johan Leon> (unknown) (no (unknown) (unknown) 0 PO SEE (units (unkn own) date) INSTRUCTIONS Qty: unknown) 250 3RF (unknown) (no (unknown) (unknown) 0.4 mg PO BEDTIME (units (unknown) date) Qty: 90 3RF unknown) (unknown) (no (unknown) (unknown) 04/09/22 08:22 (units (unknown) date) unknown) (unknown) (no (unknown) (unknown) 04/09/222005 (units ( unknown) date) unknown) (unknown) (no (unknown) (unknown) 1 applic topical (units (unknown) date) BEDTIME unknown) (unknown) (no (unknown) (unknown) 1 mg PO BID PRN (units (unknown) date) (Reason: muscle unknown) spasticity) Qty: 14 0RF (unknown) (no (unknown) (unknown) 1 tab PO Q6H PRN (units (unknown) date) (Reason: pain) Qty: unknown) 14 0RF (unknown) (no (unknown) (unknown) 10 mg PO BEDTIME (units (unknown) date) PRN unknown) (unknown) (no (unknown) (unknown) 10 mg PO TID PRN (units (unknown) date) (Reason: muscle unknown) spasm) Qty: 14 0RF (unknown) (no (unknown) (unknown) 20 mg PO DAILY (units (unknown) date) unknown) (unknown) (no (unknown) (unknown) 25 mg PO DAILY Qty: (unit s (unknown) date) 90 3RF unknown) (unknown) (no (unknown) (unknown) 50 mcg PO DAILY (units (unknown) date) unknown) (unknown) (no (unknown) (unknown) 500 mg PO TID (units ( unknown) date) unknown) (unknown) (no (unknown) (unknown) Allergies (units (unkn own) date) unknown) (unknown) (no (unknown) (unknown) Documented By: ES (units (unknown) date) unknown) (unknown) (no (unknown) (unknown) Emergency Report (units (unknown) date) unknown) (unknown) (no (unknown) (unknown) Home Medications (units (unknown) date) unknown) (unknown) (no (unknown) (unknown) [facility] (units (unknown) date) [address] unknown) [place] [address] (unknown) (no (unknown) (unknown) Lab Results (units (un known) date) unknown) (unknown) (no (unknown) (unknown) Last Admin: (units (un known) date) 04/09/22 08:33 unknown) Dose: 1 mg (unknown) (no (unknown) (unknown) Previous Rx's (units ( unknown) date) unknown) (unknown) (no (unknown) (unknown) Stop: 04/09/22 (units (unknown) date) 08:10 unknown) (unknown) (no (unknown) (unknown) Urine Dip (units (unkn own) date) unknown) (unknown) (no (unknown) (unknown) Vital Signs - 8 hr (units (unknown) date) unknown) (unknown) (no (unknown) (unknown) (no value) (units (unk nown) date) unknown) (unknown) (no (unknown) (unknown) 04/09/22 04/09/22 (units (unknown) date) Range/Units unknown) (unknown) (no (unknown) (unknown) 08:22 08:22 (units (un known) date) unknown) (unknown) (no (unknown) (unknown) Myrbetriq 25 mg (units (unknown) date) tablet extended unknown) release 24 hr (unknown) (no (unknown) (unknown) alzet (units (unkno wn) date) unknown) (unknown) (no (unknown) (unknown) calcium carbonate (units (unknown) date) 500 mg calcium unknown) (1,250 mg) tablet (unknown) (no (unknown) (unknown) carbidopa-levodopa (units (unknown) date) 50 MG/200 MG tablet unknown) extended release (unknown) (no (unknown) (unknown) cholecalciferol (units (unknown) date) (vitamin D3) 50 mcg unknown) (2,000 unit) capsule (unknown) (no (unknown) (unknown) ciclopirox 8 % (units (unknown) date) solution unknown) (unknown) (no (unknown) (unknown) cyclobenzaprine 10 (units (unknown) date) mg tablet unknown) (unknown) (no (unknown) (unknown) diphenhydramine HCl (unit s (unknown) date) [Banophen Allergy] unknown) 12.5 MG/5 ML liquid (unknown) (no (unknown) (unknown) hydrocodone-acetami (unit s (unknown) date) nophen 5-325 mg unknown) tablet (unknown) (no (unknown) (unknown) lorazepam [Ativan] (units (unknown) date) 1 mg tablet unknown) (unknown) (no (unknown) (unknown) melatonin 10 mg (units (unknown) date) capsule unknown) (unknown) (no (unknown) (unknown) omeprazole 20 mg (units (unknown) date) capsule,delayed unknown) release(DR/EC) (unknown) (no (unknown) (unknown) tamsulosin [Flomax] (unit s (unknown) date) 0.4 mg capsule unknown) (unknown) (no (unknown) (unknown) #14 tabs (units (unkno wn) date) unknown) (unknown) (no (unknown) (unknown) 04/09/22 (units (unkno wn) date) unknown) (unknown) (no (unknown) (unknown) Medication (units (unk nown) date) Instructions unknown) Recorded (unknown) (no (unknown) (unknown) Medication (units (unk nown) date) Instructions unknown) Recorded Confirmed (unknown) (no (unknown) (unknown) Muscle spasm (units (u nknown) date) unknown) (unknown) (no (unknown) (unknown) tabs (units (unkno wn) date) unknown) (unknown) (no (unknown) (unknown) (1,250 mg) tablet (units (unknown) date) unknown) (unknown) (no (unknown) (unknown) 01/14/2022 with no (units (unknown) date) change. unknown) (unknown) (no (unknown) (unknown) 07:43 (units (unkno wn) date) unknown) (unknown) (no (unknown) (unknown) 07:43 04/09/22 (units (unknown) date) unknown) (unknown) (no (unknown) (unknown) 07:50 04/09/22 (units (unknown) date) unknown) (unknown) (no (unknown) (unknown) 08:00 04/09/22 (units (unknown) date) unknown) (unknown) (no (unknown) (unknown) 08:30 04/09/22 (units (unknown) date) unknown) (unknown) (no (unknown) (unknown) 11:10 (units (unkno wn) date) unknown) (unknown) (no (unknown) (unknown) 11:11 (units (unkno wn) date) unknown) (unknown) (no (unknown) (unknown) 11:11 04/09/22 (units (unknown) date) unknown) (unknown) (no (unknown) (unknown) [id number] (units (unkno wn) date) unknown) (unknown) (no (unknown) (unknown) 449. No acute ST (units (unknown) date) elevation or unknown) depression noted. Patient has prior from (unknown) (no (unknown) (unknown) ABD:bowel sounds (units (unknown) date) normal, soft, unknown) non-tender, no guarding, rebound, rigidity, no (unknown) (no (unknown) (unknown) ADHD (units (unkno wn) date) unknown) (unknown) (no (unknown) (unknown) ALT 5 (<50) (units (unknown) date) IU/L unknown) (unknown) (no (unknown) (unknown) AST 29 (17-59) (units (unknown) date) IU/L unknown) (unknown) (no (unknown) (unknown) Acne (-1962) (units (u nknown) date) unknown) (unknown) (no (unknown) (unknown) Activity (units (unkno wn) date) Restrictions/Additio unknown) nal Instructions: (unknown) (no (unknown) (unknown) Age/Sex: 71 / M (units (unknown) date) unknown) (unknown) (no (unknown) (unknown) Albumin 4.4 (units ( unknown) date) (3.5-5.0) g/dL unknown) (unknown) (no (unknown) (unknown) Albumin/Globulin (units (unknown) date) Ratio 1.9 unknown) (1.0-2.8) (unknown) (no (unknown) (unknown) Alkaline (units (unkno wn) date) Phosphatase 66 unknown) (38-126) U/L (unknown) (no (unknown) (unknown) Allergy/AdvReac (units (unknown) date) Type Severity unknown) Reaction Status Date / Time (unknown) (no (unknown) (unknown) Anesthesia (units (unk nown) date) unknown) (unknown) (no (unknown) (unknown) Attestation: I (units (unknown) date) personally reviewed unknown) and interpreted this ECG as follows: (unknown) (no (unknown) (unknown) BPH (benign (units (un known) date) prostatic unknown) hyperplasia) (unknown) (no (unknown) (unknown) BPH w urinary (units ( unknown) date) obs/LUTS unknown) (unknown) (no (unknown) (unknown) BUN 25 H (9-20) (units (unknown) date) mg/dL unknown) (unknown) (no (unknown) (unknown) BUN/Creatinine (units (unknown) date) Ratio 28.4 H unknown) (6-22) (unknown) (no (unknown) (unknown) Baso # (Auto) 0 (units (unknown) date) (0-100) /uL unknown) (unknown) (no (unknown) (unknown) Baso % (Auto) 0.8 (units (unknown) date) (0-2) % unknown) (unknown) (no (unknown) (unknown) Bedside Urine (units ( unknown) date) Bilirubin - unknown) Negative (unknown) (no (unknown) (unknown) Bedside Urine (units ( unknown) date) Glucose Negative unknown) (unknown) (no (unknown) (unknown) Bedside Urine (units ( unknown) date) Ketone - Negative unknown) (unknown) (no (unknown) (unknown) Bedside Urine (units ( unknown) date) Leukocytes - unknown) Negative (unknown) (no (unknown) (unknown) Bedside Urine (units ( unknown) date) Nitrite - unknown) Negative (unknown) (no (unknown) (unknown) Bedside Urine (units ( unknown) date) Occult Blood - unknown) Negative (unknown) (no (unknown) (unknown) Bedside Urine (units ( unknown) date) Protein - unknown) Negative (unknown) (no (unknown) (unknown) Bedside Urine (units ( unknown) date) Urobilinogen - unknown) Negative (unknown) (no (unknown) (unknown) Bedside Urine pH (units (unknown) date) 6.0 unknown) (unknown) (no (unknown) (unknown) Blood Pressure (units (unknown) date) unknown) (unknown) (no (unknown) (unknown) Blood Pressure (units (unknown) date) 166/82 H unknown) (unknown) (no (unknown) (unknown) Blood Pressure (units (unknown) date) 170/78 H 04/09/22 unknown) 07:43 (unknown) (no (unknown) (unknown) Blood Pressure (units (unknown) date) 170/78 H 170/78 H unknown) (unknown) (no (unknown) (unknown) Broken arm (-1965) (units (unknown) date) unknown) (unknown) (no (unknown) (unknown) Calcium 9.1 (units ( unknown) date) (8.4-10.2) mg/dL unknown) (unknown) (no (unknown) (unknown) Carbon Dioxide 27 (unit s (unknown) date) (22-32) mmol/L unknown) (unknown) (no (unknown) (unknown) Cataracts, (units (unk nown) date) bilateral () unknown) (unknown) (no (unknown) (unknown) Chicken pox (units (un known) date) unknown) (unknown) (no (unknown) (unknown) Chief complaint: (units (unknown) date) Weakness unknown) (unknown) (no (unknown) (unknown) Chloride 104 (units (unknown) date) (98-107) mmol/L unknown) (unknown) (no (unknown) (unknown) Chronic back pain (units (unknown) date) (-2014) unknown) (unknown) (no (unknown) (unknown) Clinical (units (unkno wn) date) Impression: unknown) (unknown) (no (unknown) (unknown) Course (units (unkno wn) date) unknown) (unknown) (no (unknown) (unknown) Creatinine 0.88 (units (unknown) date) (0.66-1.25) mg/dL unknown) (unknown) (no (unknown) (unknown) : 1950 (units (unknown) date) Acct:[id number] unknown) (unknown) (no (unknown) (unknown) Departure (units (unkn own) date) unknown) (unknown) (no (unknown) (unknown) Depression (-1995) (units (unknown) date) unknown) (unknown) (no (unknown) (unknown) Discharge Plan (units (unknown) date) unknown) (unknown) (no (unknown) (unknown) Discontinued (units (u nknown) date) Medications unknown) (unknown) (no (unknown) (unknown) ECG Data (units (unkno wn) date) unknown) (unknown) (no (unknown) (unknown) EMS and they state (units (unknown) date) that he would have unknown) episodes of spasms they were able to (unknown) (no (unknown) (unknown) ER Physician: (units ( unknown) date) Azul Leon D.O. unknown) (unknown) (no (unknown) (unknown) Eczema (-1957) (units (unknown) date) unknown) (unknown) (no (unknown) (unknown) Elevated PSA (units (u nknown) date) unknown) (unknown) (no (unknown) (unknown) Eos # (Auto) 100 (units (unknown) date) (0-450) /uL unknown) (unknown) (no (unknown) (unknown) Eos % (Auto) 1.8 L (unit s (unknown) date) (2-4) % unknown) (unknown) (no (unknown) (unknown) Esterase (units (unkno wn) date) unknown) (unknown) (no (unknown) (unknown) Estimated GFR > (units (unknown) date) 60 (>60) mL/min unknown) (unknown) (no (unknown) (unknown) Exam (units (unkno wn) date) unknown) (unknown) (no (unknown) (unknown) Exam Narrative: (units (unknown) date) unknown) (unknown) (no (unknown) (unknown) Family History (units (unknown) date) (Reviewed 04/09/22 @ unknown) 08:12 by Azul Leon DO) (unknown) (no (unknown) (unknown) Family history of (units (unknown) date) prostate cancer unknown) (unknown) (no (unknown) (unknown) Father (units (unknown) date) Stroke unknown) (unknown) (no (unknown) (unknown) Foot pain (-1964) (units (unknown) date) unknown) (unknown) (no (unknown) (unknown) GEN: well (units (unkn own) date) nourished, well unknown) appearing male, alert and oriented x 3, patient (unknown) (no (unknown) (unknown) GERD (units (unkno wn) date) (gastroesophageal unknown) reflux disease) () (unknown) (no (unknown) (unknown) :No CVA (units (unkn own) date) tenderness unknown) (unknown) (no (unknown) (unknown) Marilin Kam MD (unit s (unknown) date) [Primary Care unknown) Provider] - (unknown) (no (unknown) (unknown) Gastric ulcer (units ( unknown) date) () unknown) (unknown) (no (unknown) (unknown) General (units (unkno wn) date) unknown) (unknown) (no (unknown) (unknown) GenericComposite[Pl (unit s (unknown) date) t Count 192 unknown) (150-400) X10^3/uL ] (unknown) (no (unknown) (unknown) GenericComposite[RB (unit s (unknown) date) C 4.08 L unknown) (4.5-5.9) X10^6/uL ] (unknown) (no (unknown) (unknown) GenericComposite[WB (unit s (unknown) date) C 6.0 (4.5-11.0) unknown) X10^3/uL ] (unknown) (no (unknown) (unknown) Globulin 2.3 (units (unknown) date) (1.7-4.1) g/dL unknown) (unknown) (no (unknown) (unknown) Glucose 93 (units (u nknown) date) (80-110) mg/dL unknown) (unknown) (no (unknown) (unknown) HEART: Regular rate (units (unknown) date) and rhythm without unknown) murmur, clicks, rubs. Pulses are equal in (unknown) (no (unknown) (unknown) HEENT: Atraumatic, (units (unknown) date) pupils are equal unknown) round reactive to light, extraocular (unknown) (no (unknown) (unknown) HPI - General Adult (unit s (unknown) date) unknown) (unknown) (no (unknown) (unknown) HPI narrative: (units (unknown) date) unknown) (unknown) (no (unknown) (unknown) Hct 36.1 L (units (un known) date) (41-53) % unknown) (unknown) (no (unknown) (unknown) He is unsure if he (units (unknown) date) has had his a.m. unknown) Parkinson's medications he does take them 4 (unknown) (no (unknown) (unknown) Hearing loss (units (u nknown) date) () unknown) (unknown) (no (unknown) (unknown) Hemorrhoid () (units (unknown) date) unknown) (unknown) (no (unknown) (unknown) Hepatitis A () (unit s (unknown) date) unknown) (unknown) (no (unknown) (unknown) Hgb 12.4 L (units (un known) date) (13.5-17.5) g/dL unknown) (unknown) (no (unknown) (unknown) History of Present (units (unknown) date) Illness unknown) (unknown) (no (unknown) (unknown) If you find it (units (unknown) date) helpful you can take unknown) the medication prescribed today 1-2 times (unknown) (no (unknown) (unknown) Initial Vital Signs (unit s (unknown) date) unknown) (unknown) (no (unknown) (unknown) Initial Vital (units ( unknown) date) Signs: unknown) (unknown) (no (unknown) (unknown) Interpretation: (units (unknown) date) unknown) (unknown) (no (unknown) (unknown) LUNGS:Lungs clear (units (unknown) date) to auscultation, no unknown) wheezes, rales, crackles, chest moves (unknown) (no (unknown) (unknown) Lab Data (units (unkno wn) date) unknown) (unknown) (no (unknown) (unknown) Labs: (units (unkno wn) date) unknown) (unknown) (no (unknown) (unknown) Left bundle branch (units (unknown) date) block sinus unknown) bradycardia rate of 57 TN 200 QRS of 140 QTC of (unknown) (no (unknown) (unknown) Limitations: no (units (unknown) date) limitations unknown) (unknown) (no (unknown) (unknown) Lorazepam (units (unkn own) date) (Lorazepam 0.5 Mg unknown) Tablet) 1 mg PO NOW ONE (unknown) (no (unknown) (unknown) Lymph # (Auto) (units (unknown) date) 1100 ([id number]) unknown) /uL (unknown) (no (unknown) (unknown) Lymph % (Auto) (units (unknown) date) 18.7 L (25-40) % unknown) (unknown) (no (unknown) (unknown) MCH 30.4 (26-34) (unit s (unknown) date) PG unknown) (unknown) (no (unknown) (unknown) MCHC 34.3 (units (unk nown) date) (30-36) % unknown) (unknown) (no (unknown) (unknown) MCV 88.6 (units (unkn own) date) (80-100) fL unknown) (unknown) (no (unknown) (unknown) MDM Narrative (units ( unknown) date) unknown) (unknown) (no (unknown) (unknown) MSCL: Non-tender, (units (unknown) date) no muscle atrophy, unknown) patient is lying on his side, he has some (unknown) (no (unknown) (unknown) Magnesium 2.0 (units (unknown) date) (1.6-2.3) mg/dL unknown) (unknown) (no (unknown) (unknown) Measles (units (unkno wn) date) unknown) (unknown) (no (unknown) (unknown) Medical Decision (units (unknown) date) Making unknown) (unknown) (no (unknown) (unknown) Medical History (units (unknown) date) (Reviewed 04/09/22 @ unknown) 08:12 by Azul Leon DO) (unknown) (no (unknown) (unknown) Medical decision (units (unknown) date) making narrative: unknown) (unknown) (no (unknown) (unknown) Mode of arrival: (units (unknown) date) EMS unknown) (unknown) (no (unknown) (unknown) [place] # (Auto) 400 (units (unknown) date) (0-900) /uL unknown) (unknown) (no (unknown) (unknown) [place] % (Auto) 6.9 (units (unknown) date) (3-14) % unknown) (unknown) (no (unknown) (unknown) Mother (units (unknown) date) Alzheimer's disease unknown) (unknown) (no (unknown) (unknown) Mumps (units (unkno wn) date) unknown) (unknown) (no (unknown) (unknown) NEURO:CN 2-12 (units (u nknown) date) intact, sensation unknown) normal, reflexes 2/4 upper and lower extremities (unknown) (no (unknown) (unknown) Narrative (units (unkn own) date) unknown) (unknown) (no (unknown) (unknown) Neut # (Auto) 4300 (unit s (unknown) date) (1582-8318) /uL unknown) (unknown) (no (unknown) (unknown) Neut % (Auto) 71.8 (unit s (unknown) date) (50-75) % unknown) (unknown) (no (unknown) (unknown) New (units (unkno wn) date) unknown) (unknown) (no (unknown) (unknown) No Action (units (unkn own) date) unknown) (unknown) (no (unknown) (unknown) Ordered: (units (unkno wn) date) unknown) (unknown) (no (unknown) (unknown) Orders (units (unkno wn) date) unknown) (unknown) (no (unknown) (unknown) Oxygen Delivery (units (unknown) date) Method unknown) (unknown) (no (unknown) (unknown) Oxygen Delivery (units (unknown) date) Method unknown) (unknown) (no (unknown) (unknown) Oxygen Delivery (units (unknown) date) Method Room Air unknown) (unknown) (no (unknown) (unknown) Parkinsons disease (units (unknown) date) unknown) (unknown) (no (unknown) (unknown) Patient (units (unkno wn) date) Disposition: Home unknown) (unknown) (no (unknown) (unknown) Patient History (units (unknown) date) unknown) (unknown) (no (unknown) (unknown) Patient presents (units (unknown) date) today for spasms. unknown) Patient currently lives in a nursing (unknown) (no (unknown) (unknown) Patient: (units (unkno wn) date) Mary Dumont J unknown) MR#: [id number] (unknown) (no (unknown) (unknown) Please follow-up (units (unknown) date) with your unknown) neurologist if you are having persistent symptoms. (unknown) (no (unknown) (unknown) Please return for (units (unknown) date) fevers, altered unknown) mental status, new chest pain or shortness of (unknown) (no (unknown) (unknown) Point of care (units ( unknown) date) testing: unknown) (unknown) (no (unknown) (unknown) Potassium 4.4 (units (unknown) date) (3.4-5.1) mmol/L unknown) (unknown) (no (unknown) (unknown) Prescription (units (u nknown) date) printed. unknown) (unknown) (no (unknown) (unknown) Prescriptions: (units (unknown) date) unknown) (unknown) (no (unknown) (unknown) Pulse Oximetry 96 (units (unknown) date) 04/09/22 07:43 unknown) (unknown) (no (unknown) (unknown) Pulse Oximetry 94 (units (unknown) date) unknown) (unknown) (no (unknown) (unknown) Pulse Oximetry 95 (units (unknown) date) 93 95 unknown) (unknown) (no (unknown) (unknown) Pulse Oximetry 96 (units (unknown) date) 96 unknown) (unknown) (no (unknown) (unknown) Pulse Rate 54 L (units (unknown) date) 04/09/22 07:43 unknown) (unknown) (no (unknown) (unknown) Pulse Rate 57 L 54 (unit s (unknown) date) L unknown) (unknown) (no (unknown) (unknown) Pulse Rate 58 L (units (unknown) date) unknown) (unknown) (no (unknown) (unknown) Pulse Rate 73 57 L (units (unknown) date) unknown) (unknown) (no (unknown) (unknown) RDW 14.0 (units (unkn own) date) (11.6-14.8) % unknown) (unknown) (no (unknown) (unknown) ROS Unobtainable: (units (unknown) date) All systems reviewed unknown) + are unremarkable except as noted in HPI (unknown) (no (unknown) (unknown) Recurrent sinusitis (unit s (unknown) date) (-1993) unknown) (unknown) (no (unknown) (unknown) Referrals: (units (unk nown) date) unknown) (unknown) (no (unknown) (unknown) Related Data (units (u nknown) date) unknown) (unknown) (no (unknown) (unknown) Respiratory Rate (units (unknown) date) unknown) (unknown) (no (unknown) (unknown) Respiratory Rate (units (unknown) date) unknown) (unknown) (no (unknown) (unknown) Respiratory Rate 18 (unit s (unknown) date) unknown) (unknown) (no (unknown) (unknown) Restless leg (units (u nknown) date) syndrome () unknown) (unknown) (no (unknown) (unknown) Result diagrams: (units (unknown) date) unknown) (unknown) (no (unknown) (unknown) Review of Systems (units (unknown) date) unknown) (unknown) (no (unknown) (unknown) SKIN: No rash, (units (unknown) date) erythema or other unknown) skin changes noted. (unknown) (no (unknown) (unknown) Shoulder pain (units ( unknown) date) () unknown) (unknown) (no (unknown) (unknown) Signed By: (units (unk nown) date) unknown) (unknown) (no (unknown) (unknown) Sister (units (unknown) date) Cancer unknown) (unknown) (no (unknown) (unknown) Smoking Status: (units (unknown) date) Former smoker unknown) (unknown) (no (unknown) (unknown) Smoking Status: (units (unknown) date) Former smoker unknown) (unknown) (no (unknown) (unknown) Social History (units (unknown) date) (Reviewed 04/09/22 @ unknown) 08:12 by Azul Leon DO) (unknown) (no (unknown) (unknown) Sodium 135 L (units (unknown) date) (137-145) mmol/L unknown) (unknown) (no (unknown) (unknown) Source: patient and (unit s (unknown) date) EMS unknown) (unknown) (no (unknown) (unknown) Stated complaint: (units (unknown) date) Spasms unknown) (unknown) (no (unknown) (unknown) Substance Use Type: (unit s (unknown) date) does not use unknown) (unknown) (no (unknown) (unknown) Substance abuse (units (unknown) date) unknown) (unknown) (no (unknown) (unknown) Surgical History (units (unknown) date) (Reviewed 04/09/22 @ unknown) 08:12 by Azul Leon DO) (unknown) (no (unknown) (unknown) Temperature (units (un known) date) unknown) (unknown) (no (unknown) (unknown) Temperature (units (un known) date) unknown) (unknown) (no (unknown) (unknown) Temperature 98.6 F (units (unknown) date) unknown) (unknown) (no (unknown) (unknown) This is a (units (unkn own) date) 71-year-old male who unknown) comes to the emergency department with complaint (unknown) (no (unknown) (unknown) This is a (units (unkn own) date) 71-year-old male unknown) with known history of Parkinson's disease and BPH. (unknown) (no (unknown) (unknown) Time Seen by (units (u nknown) date) Provider: 04/09/22 unknown) 07:55 (unknown) (no (unknown) (unknown) Tinnitus (-2017) (units (unknown) date) unknown) (unknown) (no (unknown) (unknown) Today you have not (units (unknown) date) been found being unknown) having any new acute neurologic changes, (unknown) (no (unknown) (unknown) Total Bilirubin (units (unknown) date) 1.1 (0.2-1.3) unknown) mg/dL (unknown) (no (unknown) (unknown) Total Protein 6.7 (unit s (unknown) date) (6.3-8.2) g/dL unknown) (unknown) (no (unknown) (unknown) Urine Specific (units (unknown) date) [place] 1.025 unknown) (unknown) (no (unknown) (unknown) Vertigo (-2020) (units (unknown) date) unknown) (unknown) (no (unknown) (unknown) Vision disorder (units (unknown) date) unknown) (unknown) (no (unknown) (unknown) Visit Report Forms: (unit s (unknown) date) Patient Portal/API unknown) (unknown) (no (unknown) (unknown) Vital Signs (units (un known) date) unknown) (unknown) (no (unknown) (unknown) Vital signs: (units (u nknown) date) unknown) (unknown) (no (unknown) (unknown) [Embedded Image Not (unit s (unknown) date) Available] unknown) (unknown) (no (unknown) (unknown) alcohol intake (units (unknown) date) frequency: 0-2 unknown) drinks per day (unknown) (no (unknown) (unknown) alzet PO 06/27/20 (units (unknown) date) 12/14/21 unknown) (unknown) (no (unknown) (unknown) and below (units (unkn own) date) unknown) (unknown) (no (unknown) (unknown) any point. (units (unk nown) date) unknown) (unknown) (no (unknown) (unknown) appears to be in (units (unknown) date) mild distress. unknown) Clear speech. (unknown) (no (unknown) (unknown) benzodiazepine. (units (unknown) date) Evaluated for unknown) infection with no acute findings. (unknown) (no (unknown) (unknown) body spasms they (units (unknown) date) have a finger cot unknown) why. Typically he has a tremor he does have (unknown) (no (unknown) (unknown) breath, persistent (units (unknown) date) vomiting, or other unknown) new or concerning symptoms. (unknown) (no (unknown) (unknown) but states there (units (unknown) date) was no exact cause unknown) found he is on medications for Parkinson's, (unknown) (no (unknown) (unknown) calcium carbonate (units (unknown) date) 500 mg calcium 500 unknown) mg PO TID 12/14/21 12/14/21 (unknown) (no (unknown) (unknown) carbidopa ER 50 (units (unknown) date) mg-levodopa 200 mg 0 unknown) PO SEE INSTRUCTIONS #250 tabs 09/16/17 (unknown) (no (unknown) (unknown) chest pain or (units (u nknown) date) pressure. He has unknown) had some spasm in his muscles all over the cause (unknown) (no (unknown) (unknown) cholecalciferol (units (unknown) date) (vitamin D3) 50 50 unknown) mcg PO DAILY 12/14/21 12/14/21 (unknown) (no (unknown) (unknown) ciclopirox 8 % (units (unknown) date) topical solution 1 unknown) applic topical BEDTIME 12/14/21 12/14/21 (unknown) (no (unknown) (unknown) ciprofloxacin [From (unit s (unknown) date) Cipro] Allergy unknown) Verified 08/01/21 12:33 (unknown) (no (unknown) (unknown) codeine [CODEINE] (units (unknown) date) Allergy Severe unknown) unkown Unverified 08/01/21 12:33 (unknown) (no (unknown) (unknown) cyclobenzaprine 10 (units (unknown) date) mg tablet 10 mg PO unknown) TID PRN muscle spasm #14 07/29/21 (unknown) (no (unknown) (unknown) daily as needed. (units (unknown) date) This medication can unknown) make you sleepy. (unknown) (no (unknown) (unknown) difficulty with (units (unknown) date) ambulation secondary unknown) to Parkinson's which he states is the (unknown) (no (unknown) (unknown) diphenhydramine HCl (unit s (unknown) date) 12.5 mg/5 mL ##0 unknown) 08/13/17 12/14/21 (unknown) (no (unknown) (unknown) distract him and (units (unknown) date) they would stop and unknown) they would also note that his O2 improved (unknown) (no (unknown) (unknown) electrolyte (units (un known) date) abnormalities, unknown) patient and I discussed trying a dose of oral (unknown) (no (unknown) (unknown) erythema, tonsillar (unit s (unknown) date) enlargement or unknown) uvular deviation, no facial droop. (unknown) (no (unknown) (unknown) extremities. No (units (unknown) date) obvious unknown) fasciculations or movements of his extremities (unknown) (no (unknown) (unknown) facility. He (units ( unknown) date) states he has not unknown) had any new dosing changes to his medications. (unknown) (no (unknown) (unknown) he is at least (units (unknown) date) part-time in a unknown) wheelchair. Labs were obtained to evaluate for (unknown) (no (unknown) (unknown) hydrocodone 5 (units ( unknown) date) mg-acetaminophen 325 unknown) 1 tab PO Q6H PRN pain #14 tabs 07/29/21 (unknown) (no (unknown) (unknown) is in a wheelchair. (unit s (unknown) date) Patient denies any unknown) fevers or chills. He states he has had (unknown) (no (unknown) (unknown) lorazepam 1 mg (units (unknown) date) tablet (Ativan) 1 mg unknown) PO BID PRN muscle spasticity 04/09/22 (unknown) (no (unknown) (unknown) masses noted, no (units (unknown) date) hepatosplenomegaly unknown) (unknown) (no (unknown) (unknown) mcg (2,000 unit) (units (unknown) date) capsule unknown) (unknown) (no (unknown) (unknown) melatonin 10 mg (units (unknown) date) capsule 10 mg PO unknown) BEDTIME PRN 12/14/21 12/14/21 (unknown) (no (unknown) (unknown) meperidine [From (units (unknown) date) DEMEROL] Allergy unknown) Severe HYPOTHERMIA Unverified 08/01/21 12:33 (unknown) (no (unknown) (unknown) mg tablet (units (unkn own) date) unknown) (unknown) (no (unknown) (unknown) mild tremor and pill (unit s (unknown) date) rolling with his unknown) upper extremities mild tremor in his lower (unknown) (no (unknown) (unknown) mirabegron 25 mg (units (unknown) date) tablet,extended 25 unknown) mg PO DAILY #90 tabs 03/10/21 (unknown) (no (unknown) (unknown) movements are (units ( unknown) date) intact, nares are unknown) clear, Throat is clear without any exudates, (unknown) (no (unknown) (unknown) of full body spasms (unit s (unknown) date) patient does not unknown) have any witnessed seizure-like activity (unknown) (no (unknown) (unknown) omeprazole 20 mg (units (unknown) date) capsule,delayed 20 unknown) mg PO DAILY 06/23/20 12/14/21 (unknown) (no (unknown) (unknown) or bladder control. (units (unknown) date) No recent diarrhea. unknown) No new urinary issues, dysuria urgency (unknown) (no (unknown) (unknown) or frequency. He (units (unknown) date) does not appreciated unknown) any fevers. Patient traveled here with (unknown) (no (unknown) (unknown) oral liquid (units (un known) date) (Banophen Allergy) unknown) (unknown) (no (unknown) (unknown) otherwise. (units (unk nown) date) unknown) (unknown) (no (unknown) (unknown) per EMS during (units (unknown) date) these episodes. His unknown) O2 sat creases he is distractible during (unknown) (no (unknown) (unknown) please continue (units (unknown) date) your home unknown) medications particularly a Parkinson's medications as (unknown) (no (unknown) (unknown) prescribed. (units (un known) date) unknown) (unknown) (no (unknown) (unknown) reason he is in a (units (unknown) date) nursing facility. unknown) He sometimes uses a walker but other times (unknown) (no (unknown) (unknown) release (units (unkno wn) date) unknown) (unknown) (no (unknown) (unknown) release 24 hr (units ( unknown) date) (Myrbetriq) unknown) (unknown) (no (unknown) (unknown) some discomfort. He (unit s (unknown) date) denies any nausea or unknown) vomiting. He denies any loss of bowel (unknown) (no (unknown) (unknown) some nasal (units (unk nown) date) congestion starting unknown) yesterday, a mild cough. He denies any active (unknown) (no (unknown) (unknown) symmetrically (units ( unknown) date) unknown) (unknown) (no (unknown) (unknown) tablet,extended (units (unknown) date) release unknown) (unknown) (no (unknown) (unknown) tamsulosin 0.4 mg (units (unknown) date) capsule (Flomax) 0.4 unknown) mg PO BEDTIME #90 caps 03/04/22 (unknown) (no (unknown) (unknown) these episodes. (units (unknown) date) During discussion unknown) patient states he has had them once before (unknown) (no (unknown) (unknown) times daily. (units (u nknown) date) Patient states he unknown) has had prior episodes were he have sees full (unknown) (no (unknown) (unknown) upper and lower (units (unknown) date) extremities unknown) (unknown) (no (unknown) (unknown) with these episodes (units (unknown) date) occurred. Per EMS unknown) patient was not tachycardic or hypoxic at Social History date description facility (no date) Ex-smoker (finding) [facility] Vital Signs date measurement value units [id number]+0000 BMI BMI 26.2 kg/m2 [id number]+0000 BP_diastolic BP_diastolic 82 mm[H g] [id number]+0000 BP_systolic BP_systolic 166 mm[Hg] 50153798768685+0000 heart_rate heart_rate 58 /min [id number]+0000 height_metric height_metric 173.99 cm [id number]+0000 height_standard height_standard 68.5 in [id number]+0000 respiration_rate respiration_rate 18 /min [id number]+0000 temperature_metric temperature_metric 37 C [id number]+0000 temperature_standard temperature_standard 9 8.6 F [id number]+0000 weight_metric weight_metric 36.01 kg [id number]+0000 weight_standard weight_standard 79.38 lb
--- NOTE | 2022-05-17 11:16 | CT Report ---
PROCEDURE: HEAD WO INDICATIONS: Altered mental status TECHNIQUE: Noncontrast 4.5 mm thick angled axial sections acquired from the foramen magnum to the vertex. For r adiation dose reduction, the following was used: automated exposure control, adjustment of mA and/or kV according to patient size. COMPARISON: None FINDINGS: Image quality: Excellent. CSF spaces: Basal cisterns are patent. No extra-axial fluid collections. Ventricles are normal in size and shape. Brain: Punctate calcification in the right parietal region without adjacent vasogenic edema or other parenchymal abnormality. No midline shift. No intracranial masses or hemorrhage. José-white matter interface is normal. Skull and face: Calvarium and visualized facial bones are intact, without suspicious lesions. Sinuses: Visualized sinuses and mastoids are clear. IMPRESSION: No acute intracranial finding. 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 MRI with and without IV contras t recommended for further evaluation to exclude other less likely etiologies such as neoplasm or vasc ular malformation. Reviewed by: Sukhjinder Hernandez MD on 05/17/2022 11:15 AM PDT Approved by: Sukhjinder Hernandez MD on 05/17/2022 11:15 AM PDT Station ID: [id number]
--- NOTE | 2022-05-17 11:18 | XRAY Report ---
PROCEDURE: Chest 1 View X-Ray INDICATIONS: AMS TECHNIQUE: One view of the chest was acquired. COMPARISON: 03/09/2022 FINDINGS: Surgical changes and devices: None. Lungs and pleura: No pleural effusions or pneumothorax. Cephalization of pulmonary vessels. Intersti tial markings in the central/perihilar lungs mildly increased in prominence. Mediastinum: Mediastinal contours appear normal. Heart size is enlarged. Bones and chest wall: No suspicious bony lesions. Overlying soft tissues appear unremarkable. IMPRESSION: Mild cardiomegaly with cephalization of pulmonary vessels with mildly increased interstitial markings indicative of [id number] pulmonary edema. Reviewed by: Sukhjinder Hernandez MD on 05/17/2022 11:16 AM PDT Approved by: Sukhjinder Hernandez MD on 05/17/2022 11:16 AM PDT Station ID: [id number]
[2022-05-17 11:25] LABS: BASOPHILS # (AUTO) 0.1 10^3/uL (0.0-0.1); BASOPHILS % (AUTO) 0.8 %; EOSINOPHILS # (AUTO) 0.1 10^3/uL (0.0-0.7); EOSINOPHILS % (AUTO) 1.7 %; HCT - HEMATOCRIT 40.4 % (42.0-52.0); HGB - HEMOGLOBIN 13.3 g/dL (14.0-18.0); LYMPHOCYTES # (AUTO) 1.1 10^3/uL (1.5-3.5); LYMPHOCYTES % (AUTO) 16.6 %; MEAN CORPUSCULAR HEMOGLOBIN 29.6 pg (27.0-31.0); MEAN CORPUSCULAR HGB CONC 32.9 g/dL (32.0-36.0); MEAN CORPUSCULAR VOLUME 89.8 fL (80.0-94.0); MEAN PLATELET VOLUME 9.2 fL (7.4-11.4); MONOCYTES # (AUTO) 0.5 10^3/uL (0.0-1.0); MONOCYTES % (AUTO) 6.9 %; NEUTROPHILS # (AUTO) 4.9 10^3/uL (1.5-6.6); NEUTROPHILS % (AUTO) 73.5 %; PLT - PLATELET COUNT 222 10^3/uL (130-450); RED CELL DISTRIBUTION WIDTH 13.2 % (12.0-15.0); WHITE BLOOD COUNT 6.6 x10^3/uL (4.8-10.8)
[2022-05-17 11:29] LABS: BILIRUBIN,URINE NEGATIVE (NEGATIVE); GLUCOSE, URINE (UA) NEGATIVE (NEGATIVE); KETONES,URINE (UA) NEGATIVE (NEGATIVE); LEUKOCYTE ESTERASE, URINE NEGATIVE (NEGATIVE); NITRITE,URINE NEGATIVE (NEGATIVE); OCCULT BLOOD,URINE SMALL (NEGATIVE); PROTEIN,URINE NEGATIVE (NEGATIVE); UROBILINOGEN,URINE 0.2 (NORMAL) E.U./dL (NORMAL)
[2022-05-17 11:30] LABS: CLARITY,URINE CLEAR (CLEAR)
[2022-05-17 11:36] LABS: BACTERIA,URINE None Seen /HPF (None Seen); SQUAMOUS EPITHELIAL CELL,UR RARE Squamous (<= Few); WBC,URINE 0-3 /HPF (0-3)
[2022-05-17 12:00] LABS: ALBUMIN 4.4 g/dL (3.2-5.5); ALBUMIN/GLOBULIN RATIO 1.9 (1.0-2.2); ALKALINE PHOSPHATASE 85 IU/L (42-121); ALT ALANINE AMINOTRANSFERASE < 10 IU/L (10-60); AST ASPARTATE AMINOTRANSFERASE 26 IU/L (10-42); BILIRUBIN,TOTAL 1.2 mg/dL (0.2-1.0); BUN - BLOOD UREA NITROGEN 19 mg/dL (6-20); CALCIUM 9.4 mg/dL (8.5-10.3); CARBON DIOXIDE - CO2 28 mmol/L (21-32); CHLORIDE 102 mmol/L (101-111); CREATININE 0.8 mg/dL (0.6-1.2); GFR - MDRD 96 (>89); GLUCOSE 102 mg/dL (70-100); POTASSIUM 4.3 mmol/L (3.5-5.0); SODIUM 137 mmol/L (135-145); TOTAL PROTEIN 6.7 g/dL (6.7-8.2)
--- NOTE | 2022-05-17 12:36 | ED Physician Documentation ---
History of Present Illness - Stated complaint Stated Complaint: ALOC - Chief complaint Chief Complaint: Neuro - History obtained from History obtained from: EMS - History of Present Illness Timing: Today - Additonal information Additional information: 71-year-old male with history of advanced Parkinson's dementia presents by EMS for altered mental status. EMS states that the patient has a habit of laying down on the ground and not responding to nursing staff when he is upset about something. EMS reports that today the patient was upset because he was not getting Xanax as frequently as he wanted and would not respond to assisted staff. alf staff stated that they called EMS today because the patient was not responding for longer than he normally does. EMS states that the patient had his eyes open, however when his name was called he would tightly shut his eyes. He would not respond to questions or commands. Review of Systems Unable to obtain: Dementia, Uncooperative PD PAST MEDICAL HISTORY - Past Medical History Cardiovascular: None Respiratory: None Neuro: Parkinson's (largely sedentary due to this. ) Endocrine/Autoimmune: None GI: None : Benign prostate hypertrophy Psych: Anxiety Derm: None - Past Surgical History Past Surgical History: No - Present Medications Home Medications: Ambulatory Orders Medication Instructions Recorded Confirmed Albuterol Sulf [Ventolin Hfa 3 puffs INH TID 15 Days #1 inhaler 03/09/22 05/11/22 Inhaler] cefUROXime axetiL [Ceftin] 250 mg PO Q12H #12 tablet 03/09/22 05/11/22 Carbidopa/Levodopa [Rytary ER 1 each PO QID 05/11/22 05/11/22 48.75 mg-195 mg Cap] Citalopram [CeleXA] 20 mg PO DAILY 05/11/22 05/11/22 LORazepam [Ativan] 1 mg PO ONCE 05/11/22 05/11/22 Melatonin/Pyridoxine [Melatonin 5 5 mg PO DAILY 05/11/22 05/11/22 mg Tablet] Mirabegron [Myrbetriq] 25 mg PO DAILY 05/11/22 05/11/22 Tamsulosin [Flomax] 0.4 mg PO DAILY 05/11/22 05/11/22 - Allergies Allergies/Adverse Reactions: Allergies Allergy/AdvReac Type Severity Reaction Status Date / Time ciprofloxacin [From Cipro] Allergy Unknown Verified 05/11/22 02:27 meperidine [From Demerol] Allergy Unknown Verified 05/11/22 02:27 - Social History Does the pt smoke?: No Smoking Status: Never smoker Does the pt drink ETOH?: No Does the pt have substance abuse?: No PD ED PE NORMAL - Vitals Vital signs reviewed: Yes - General General: No acute distress, Well developed/nourished, Other (not responding verbally. 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, No motor deficit - Psych Psych: Other (unable to assess - uncooperative) Results - Vitals Vitals: Oxygen O2 Source Room air - Labs Labs: Laboratory Tests 05/17/22 05/17/22 05/17/22 11:12 11:12 11:12 WBC 6.6 RBC 4.50 L Hgb 13.3 L Hct 40.4 L MCV 89.8 MCH 29.6 MCHC 32.9 RDW 13.2 Plt Count 222 MPV 9.2 Neut # (Auto) 4.9 Lymph # (Auto) 1.1 L Bertie # (Auto) 0.5 Eos # (Auto) 0.1 Baso # (Auto) 0.1 Absolute Nucleated RBC 0.00 Nucleated RBC % 0.0 Sodium 137 Potassium 4.3 Chloride 102 Carbon Dioxide 28 Anion Gap 7.0 BUN 19 Creatinine 0.8 Estimated GFR (MDRD) 96 Glucose 102 H Calcium 9.4 Total Bilirubin 1.2 H AST 26 ALT < 10 L Alkaline Phosphatase 85 Troponin I High Sens 12.6 Total Protein 6.7 Albumin 4.4 Globulin 2.3 Albumin/Globulin Ratio 1.9 Urine Color Urine Clarity Urine pH Ur Specific [place] Urine Protein Urine Glucose (UA) Urine Ketones Urine Occult Blood Urine Nitrite Urine Bilirubin Urine Urobilinogen Ur Leukocyte Esterase Urine RBC Urine WBC Ur Squamous Epith Cells Urine Bacteria Ur Microscopic Review Urine Culture Comments 05/17/22 11:25 WBC RBC Hgb Hct MCV MCH MCHC RDW Plt Count MPV Neut # (Auto) Lymph # (Auto) Bertie # (Auto) Eos # (Auto) Baso # (Auto) Absolute Nucleated RBC Nucleated RBC % Sodium Potassium Chloride Carbon Dioxide Anion Gap BUN Creatinine Estimated GFR (MDRD) Glucose Calcium Total Bilirubin AST ALT Alkaline Phosphatase Troponin I High Sens Total Protein Albumin Globulin Albumin/Globulin Ratio Urine Color YELLOW Urine Clarity CLEAR Urine pH 6.0 Ur Specific [place] 1.015 Urine Protein NEGATIVE Urine Glucose (UA) NEGATIVE Urine Ketones NEGATIVE Urine Occult Blood SMALL H Urine Nitrite NEGATIVE Urine Bilirubin NEGATIVE Urine Urobilinogen 0.2 (NORMAL) Ur Leukocyte Esterase NEGATIVE Urine RBC 6-10 H Urine WBC 0-3 Ur Squamous Epith Cells RARE Squamous Urine Bacteria None Seen Ur Microscopic Review INDICATED Urine Culture Comments NOT INDICATED PD MEDICAL DECISION MAKING - ED course ED course: Patient presenting for altered mental status and dementia. Per EMS report the patient does have a history of acting out and becoming unresponsive when he is upset with his care. No obvious physical exam abnormalities. Of note, the patient had an abnormal CT of the brain. No previous CTs available for comparison. Initially ordered MRI with and without contrast at recommendation of radiology report, however our radiotelephone technical operator is no longer available and MRI is not able to be completed. At this time the patient is awake, not responding verbally, however eyes are open and interactive with staff. I was able to discuss the patient's case with his primary care doctor at the assisted facility, who confirmed that the patient was upset and not receiving more f requent Xanax and does have a history of outbursts similar to described by EMS. Physician was given a verbal report of the CT imaging of the brain and will follow-up with this patient. Departure - Departure Disposition: 01 Home, Self Care Clinical Impression: Abnormal brain CT, Advanced dementia, Parkinsons disease Altered mental status Qualifiers: Altered mental status type: unspecified Qualified Code(s): R41.82 - Altered me ntal status, unspecified Condition: Stable Instructions: ED Dementia Caregiver Support Comments: PATIENT WILL NEED OUTPATIENT MRI ON URGENT BASIS. CONTACT PCP FOR ORDER. WE ARE UNABLE TO PERFORM MRI AT OUR FACILITY TODAY Discharge Date/Time: 05/17/22 13:17
[2022-05-17 13:03] VITALS: BP 160/82
== END 2022-05-17 13:17 | disposition home or self-care (01) ==
LOC: EDUNIT# → ED 10:26
DX: G20 Parkinson's disease (principal); F02.81 Dementia in other diseases classified elsewhere, unspecified severity, with behavioral disturbance; R94.8 Abnormal results of function studies of other organs and systems
CPT/HCPCS: 36415; 80053; 81001; 81003; 84484; 85025; 87086; 93005; 99281; 99284

== ENCOUNTER 2022-05-17 13:22 | Outpatient (CLI) | payer MEDICARE, OTHER | END 2022-05-17 13:23 | disposition home or self-care (01) | LOC: EMS 13:22 | PROVIDERS: ATTEND Emergency Medicine | DX: R41.0 Disorientation, unspecified (principal); F03.90 Unspecified dementia, unspecified severity, without behavioral disturbance, psychotic disturbance, mood disturbance, and anxiety | CPT/HCPCS: A0425; A0428 ==

== ENCOUNTER 2022-05-27 00:48 | Outpatient (CLI) | payer MEDICARE, OTHER | END 2022-05-27 00:49 | disposition critical access hospital (66) | LOC: EMS 00:48 | DX: Z04.3 Encounter for examination and observation following other accident (principal); R40.4 Transient alteration of awareness; R53.1 Weakness; F32.A Depression, unspecified | CPT/HCPCS: A0425; A0429 ==

== ENCOUNTER 2022-05-27 01:06 | Emergency (ER) | payer MEDICARE, OTHER ==
--- OUTSIDE RECORDS SUMMARY | 2022-05-27 01:21 | EXTERNAL MEDICAL SUMMARY RPT | Continuity of Care Document ---
:1950 Author Organization [place] Address [address] [place] [address] Phone Allergies and Intolerances date description facility type (no date) ciprofloxacin [facility] (unknown) (no date) codeine [facility] (unknown) (no date) meperidine [facility] (unknown) Encounters No information. Functional Status No information. Immunizations No information. Medications date description facility [id number] Lorazepam 1 MG Oral Tablet [facility] Problems No information. Procedures date description facility [id number] General Physician [facility] Results/Labs test date author facility value unit [...] (unknown) date) unknown) (unknown) (no (unknown) (unknown) [facility] (units (unknown) date) [address] [place] [address] unknown) [place] [address] (unknown) (no (unknown) (unknown) Previous Rx's (units [...] wn) date) unknown) (unknown) (no (unknown) (unknown) [id number] (units (o wn) date) unknown) (unknown) (no [...] (unknown) (unknown) : 1950 (units (unknown) date) Acct:[id number] unknown) (unknown) (no (unknown) (unknown) Departure (units [...] (unknown) date) unknown) (unknown) (no (unknown) (unknown) [facility] (units (unknown) date) [address] [place] [address] unknown) [place] [address] (unknown) (no (unknown) (unknown) Previous Rx's (units [...] wn) date) unknown) (unknown) (no (unknown) (unknown) [id number] (units (unkno wn) date) unknown) (unknown) (no [...] (unknown) (unknown) : 1950 (units (unknown) date) Acct:[id number] unknown) (unknown) (no (unknown) (unknown) Departure (units [...] block sinus unknown) bradycardia rate of 57 HI 200 QRS of 140 QTC of (unknown) [...] (unknown) (unknown) Urine Specific (units (unknown) date) [place] 1.025 unknown) (unknown) (no (unknown) (unknown) Vertigo [...] (unknown) date) unknown) (unknown) (no (unknown) (unknown) [facility] (units (unknown) date) [address] [place] [address] unknown) [place] [address] (unknown) (no (unknown) (unknown) Lab Results (units [...] (unknown) date) unknown) (unknown) (no (unknown) (unknown) [id number] (units (unkno wn) date) unknown) (unknown) (no [...] (unknown) (unknown) : 1950 (units (unknown) date) Acct:[id number] unknown) (unknown) (no (unknown) (unknown) Departure (units [...] block sinus unknown) bradycardia rate of 57 HI 200 QRS of 140 QTC of (unknown) (no (unknown) (unknown) Limitations: no (units (unknown) date) limitations unknown) (unknown) (no (unknown) (unknown) Lorazepam (units (unkn own) date) (Lorazepam 0.5 Mg unknown) Tablet) 1 mg PO NOW ONE (unknown) (no (unknown) (unknown) Lymph # (Auto) (units (unknown) date) 1100 (9059-9919) unknown) /uL (unknown) (no (unknown) (unknown) Lymph [...] date) EMS unknown) (unknown) (no (unknown) (unknown) [place] # (Auto) 400 (units (unknown) date) (0-900) /uL unknown) (unknown) (no (unknown) (unknown) [place] % (Auto) 6.9 (units (unknown) date) (3-14) [...] # (Auto) 4300 (unit s (unknown) date) (8215-0011) /uL unknown) (unknown) (no (unknown) (unknown) Neut [...] (unknown) (unknown) Urine Specific (units (unknown) date) [place] 1.025 unknown) (unknown) (no (unknown) (unknown) Vertigo [...] (unknown) date) unknown) (unknown) (no (unknown) (unknown) [facility] (units (unknown) date) [address] unknown) [place] [address] (unknown) (no (unknown) (unknown) Lab Results (units [...] (unknown) date) unknown) (unknown) (no (unknown) (unknown) [id number] (units (unkno wn) date) unknown) (unknown) (no [...] (unknown) (unknown) : 1950 (units (unknown) date) Acct:[id number] unknown) (unknown) (no (unknown) (unknown) Departure (units [...] block sinus unknown) bradycardia rate of 57 HI 200 QRS of 140 QTC of (unknown) (no (unknown) (unknown) Limitations: no (units (unknown) date) limitations unknown) (unknown) (no (unknown) (unknown) Lorazepam (units (unkn own) date) (Lorazepam 0.5 Mg unknown) Tablet) 1 mg PO NOW ONE (unknown) (no (unknown) (unknown) Lymph # (Auto) (units (unknown) date) 1100 (0120-5670) unknown) /uL (unknown) (no (unknown) (unknown) Lymph [...] date) EMS unknown) (unknown) (no (unknown) (unknown) [place] # (Auto) 400 (units (unknown) date) (0-900) /uL unknown) (unknown) (no (unknown) (unknown) [place] % (Auto) 6.9 (units (unknown) date) (3-14) [...] # (Auto) 4300 (unit s (unknown) date) (7349-7220) /uL unknown) (unknown) (no (unknown) (unknown) Neut [...] (unknown) (unknown) Urine Specific (units (unknown) date) [place] 1.025 unknown) (unknown) (no (unknown) (unknown) Vertigo [...] date description facility (no date) Ex-smoker (finding) [facility] Vital Signs date measurement value units [id number]+0000 BMI BMI 26.2 kg/m2 96894565921918+0000 BP_diastolic BP_diastolic 82 mm[H g] 02905999322875+0000 BP_systolic BP_systolic 166 mm[Hg] 19107236563409+0000 heart_rate heart_rate 58 /min 59536253983158+0000 height_metric height_metric 173.99 cm 51546454907000+0000 height_standard height_standard 68.5 in [id number]+0000 respiration_rate respiration_rate 18 /min 81969038818275+0000 temperature_metric temperature_metric 37 C [id number]+0000 temperature_standard temperature_standard 9 8.6 F 53551177843093+0000 weight_metric weight_metric 36.01 kg 87354713632336+0000 weight_standard weight_standard 79.38 lb
[2022-05-27 01:29] LABS: BILIRUBIN,URINE NEGATIVE (NEGATIVE); CLARITY,URINE CLEAR (CLEAR); GLUCOSE, URINE (UA) NEGATIVE (NEGATIVE); KETONES,URINE (UA) NEGATIVE (NEGATIVE); LEUKOCYTE ESTERASE, URINE NEGATIVE (NEGATIVE); NITRITE,URINE NEGATIVE (NEGATIVE); OCCULT BLOOD,URINE NEGATIVE (NEGATIVE); PH,URINE 6.5 PH (5.0-7.5); PROTEIN,URINE NEGATIVE (NEGATIVE); UROBILINOGEN,URINE 0.2 (NORMAL) E.U./dL (NORMAL)
[2022-05-27 01:32] LABS: BASOPHILS # (AUTO) 0.1 10^3/uL (0.0-0.1); BASOPHILS % (AUTO) 1.1 %; EOSINOPHILS # (AUTO) 0.2 10^3/uL (0.0-0.7); EOSINOPHILS % (AUTO) 2.5 %; HCT - HEMATOCRIT 38.2 % (42.0-52.0); HGB - HEMOGLOBIN 12.9 g/dL (14.0-18.0); LYMPHOCYTES # (AUTO) 1.5 10^3/uL (1.5-3.5); LYMPHOCYTES % (AUTO) 23.6 %; MEAN CORPUSCULAR HEMOGLOBIN 30.5 pg (27.0-31.0); MEAN CORPUSCULAR HGB CONC 33.8 g/dL (32.0-36.0); MEAN CORPUSCULAR VOLUME 90.3 fL (80.0-94.0); MEAN PLATELET VOLUME 9.2 fL (7.4-11.4); MONOCYTES # (AUTO) 0.5 10^3/uL (0.0-1.0); MONOCYTES % (AUTO) 8.5 %; NEUTROPHILS # (AUTO) 4.1 10^3/uL (1.5-6.6); NEUTROPHILS % (AUTO) 64.1 %; PLT - PLATELET COUNT 201 10^3/uL (130-450); RED BLOOD COUNT 4.23 10^6/uL (4.70-6.10); RED CELL DISTRIBUTION WIDTH 13.2 % (12.0-15.0); WHITE BLOOD COUNT 6.3 x10^3/uL (4.8-10.8)
[2022-05-27 01:45] LABS: ALBUMIN 4.7 g/dL (3.2-5.5); ALBUMIN/GLOBULIN RATIO 2.2 (1.0-2.2); ALKALINE PHOSPHATASE 82 IU/L (42-121); ALT ALANINE AMINOTRANSFERASE < 10 IU/L (10-60); AST ASPARTATE AMINOTRANSFERASE 17 IU/L (10-42); BILIRUBIN,TOTAL 0.8 mg/dL (0.2-1.0); BUN - BLOOD UREA NITROGEN 24 mg/dL (6-20); CALCIUM 9.2 mg/dL (8.5-10.3); CARBON DIOXIDE - CO2 26 mmol/L (21-32); CHLORIDE 100 mmol/L (101-111); CK- CREATINE KINASE 55 IU/L (22-269); CREATININE 0.9 mg/dL (0.6-1.2); GFR - MDRD 84 (>89); GLUCOSE 105 mg/dL (70-100); LIPASE 28 U/L (22-51); POTASSIUM 4.2 mmol/L (3.5-5.0); SODIUM 133 mmol/L (135-145); TOTAL PROTEIN 6.8 g/dL (6.7-8.2)
[2022-05-27 02:04] LABS: PT - PROTHROMBIN TIME 11.4 secs (9.9-12.6)
--- NOTE | 2022-05-27 03:54 | ED Physician Documentation ---
History of Present Illness - Stated complaint Stated Complaint: GLF - Chief complaint Chief Complaint: Neuro - History obtained from History obtained from: Patient - Additonal information Additional information: Patient is 71-year-old male presenting to the emergency department from [facility]. Past medical significant for Parkinson's. Reports progressively work in the setting parkinsonian symptoms. Is currently in the process of being transition from assisted living to a higher level of care. Today we will getting up and going to the bathroom he became acutely weak and slumped down on the ground. Reports was down for less than 20 minutes before he was able to summon help using the call string in his bathroom. Region staff reported that he was unresponsive however EMS found him alert and o rientated. He denies any known loss of consciousness. Reports feeling generally weak but denies any fever, chills, chest pain, shortness of breath, abdominal pain, nausea, vomiting, diarrhea, constipation. Review of Systems Ten Systems: 10 systems reviewed and negative Constitutional: reports: Fatigue. denies: Fever Eyes: denies: Loss of vision Ears: denies: Loss of hearing Nose: denies: Rhinorrhea / runny nose Throat: denies: Dental pain / toothache Cardiac: denies: Chest pain / pressure Respiratory: denies: Dyspnea GI: denies: Abdominal Pain : denies: Dysuria Skin: denies: Rash Musculoskeletal: denies: Neck pain Neurologic: reports: Generalized weakness. denies: Focal weakness, Difficulty speaking, Seizure, Confused, Altered mental status PD PAST MEDICAL HISTORY - Past Medical History Past Medical History: Yes Cardiovascular: None Respiratory: None Neuro: Parkinson's Endocrine/Autoimmune: None GI: None : Benign prostate hypertrophy Psych: Anxiety Derm: None - Past Surgical History Past Surgical History: No - Present Medications Home Medications: Ambulatory Orders Medication Instructions Recorded Confirmed Albuterol Sulf [Ventolin Hfa 3 puffs INH TID 15 Days #1 inhaler 03/09/22 05/11/22 Inhaler] Carbidopa/Levodopa [Rytary ER 1 each PO QID 05/11/22 05/27/22 48.75 mg-195 mg Cap] Citalopram [CeleXA] 20 mg PO DAILY 05/11/22 05/27/22 LORazepam [Ativan] 1 mg PO BID 05/11/22 05/27/22 Melatonin/Pyridoxine [Melatonin 5 5 mg PO DAILY 05/11/22 05/27/22 mg Tablet] Mirabegron [Myrbetriq] 25 mg PO DAILY 05/11/22 05/27/22 Tamsulosin [Flomax] 0.4 mg PO DAILY 05/11/22 05/27/22 - Allergies Allergies/Adverse Reactions: Allergies Allergy/AdvReac Type Severity Reaction Status Date / Time ciprofloxacin [From Cipro] Allergy Unknown Verified 05/27/22 01:22 meperidine [From Demerol] Allergy Unknown Verified 05/27/22 01:22 - Social History Does the pt smoke?: No Smoking Status: Never smoker Does the pt drink ETOH?: No Does the pt have substance abuse?: No - POLST Patient has POLST: Yes PD ED PE NORMAL - Vitals Vital signs reviewed: Yes - General General: Alert and oriented X 3 - HEENT HEENT: Atraumatic, PERRL, EOMI, Ears normal, Moist mucous membranes, Pharynx benign, Dentition benign - Neck Neck: Supple, no meningeal sign, No bony TTP, No adenopathy, Thyroid normal, No JVD, No bruit - Cardiac Cardiac: RRR, No murmur, No gallop, Strong equal pulses - Respiratory Respiratory: No respiratory distress, Clear bilaterally - Abdomen Abdomen: Normal bowel sounds, Non tender, No organomegaly - Male Male : Deferred - Rectal Rectal: Deferred - Back Back: No CVA TTP - Derm Derm: Normal color - Extremities Extremities: No deformity, No tenderness to palpate, No edema - Neuro Neuro: Alert and oriented X 3, life assurance representative 2-12 intact, No sensory deficit, Normal speech, Other (Patient has a flattened affect) Results - Vitals Vitals: Vital Signs - 24 hr 05/27/22 05/27/22 05/27/22 01:08 01:38 02:40 Temperature 36.3 C L Heart Rate 63 61 50 L Respiratory 16 14 18 Rate Blood Pressure 207/98 H 192/99 H 141/91 H O2 Saturation 97 100 100 05/27/22 05/27/22 03:52 05:38 Temperature 36.9 C Heart Rate 55 L 56 L Respiratory 15 16 Rate Blood Pressure 154/88 H 185/77 H O2 Saturation 98 97 Oxygen O2 Source Room air - EKG (time done) 0143 Rate: Rate (enter#) (58) Rhythm: NSR [place]: Normal Intervals: Prolonged AR, LBBB QRS: Normal Ischemia: Other (Appropriate discordance) Computer interpretation: Agree with computer - Labs Labs: Laboratory Tests 05/27/22 05/27/22 05/27/22 01:17 01:25 01:25 WBC 6.3 RBC 4.23 L Hgb 12.9 L Hct 38.2 L MCV 90.3 MCH 30.5 MCHC 33.8 RDW 13.2 Plt Count 201 MPV 9.2 Neut # (Auto) 4.1 Lymph # (Auto) 1.5 [place] # (Auto) 0.5 Eos # (Auto) 0.2 Baso # (Auto) 0.1 Absolute Nucleated RBC 0.00 Nucleated RBC % 0.0 PT 11.4 INR 1.0 Sodium Potassium Chloride Carbon Dioxide Anion Gap BUN Creatinine Estimated GFR (MDRD) Glucose Lactic Acid Calcium Total Bilirubin AST ALT Alkaline Phosphatase Total Creatine Kinase Total Protein Albumin Globulin Albumin/Globulin Ratio Lipase Urine Color YELLOW Urine Clarity CLEAR Urine pH 6.5 Ur Specific [place] <=1.005 Urine Protein NEGATIVE Urine Glucose (UA) NEGATIVE Urine Ketones NEGATIVE Urine Occult Blood NEGATIVE Urine Nitrite NEGATIVE Urine Bilirubin NEGATIVE Urine Urobilinogen 0.2 (NORMAL) Ur Leukocyte Esterase NEGATIVE Ur Microscopic Review NOT INDICATED Urine Culture Comments NOT INDICATED 05/27/22 05/27/22 01:25 01:25 WBC RBC Hgb Hct MCV MCH MCHC RDW Plt Count MPV Neut # (Auto) Lymph # (Auto) [place] # (Auto) Eos # (Auto) Baso # (Auto) Absolute Nucleated RBC Nucleated RBC % PT INR Sodium 133 L Potassium 4.2 Chloride 100 L Carbon Dioxide 26 Anion Gap 7.0 BUN 24 H Creatinine 0.9 Estimated GFR (MDRD) 84 L Glucose 105 H Lactic Acid 0.6 Calcium 9.2 Total Bilirubin 0.8 AST 17 ALT < 10 L Alkaline Phosphatase 82 Total Creatine Kinase 55 Total Protein 6.8 Albumin 4.7 Globulin 2.1 Albumin/Globulin Ratio 2.2 Lipase 28 Urine Color Urine Clarity Urine pH Ur Specific [place] Urine Protein Urine Glucose (UA) Urine Ketones Urine Occult Blood Urine Nitrite Urine Bilirubin Urine Urobilinogen Ur Leukocyte Esterase Ur Microscopic Review Urine Culture Comments PD MEDICAL DECISION MAKING - ED course Complexity details: reviewed results, re-evaluated patient, d/w patient ED course: Patient is a 71-year-old male coming from local area assisted living where he is in treatment for Parkinson's disease. Afebrile, hemodynamically stable. No acute complaints on arrival. Did obtain comprehensive labs and imaging which were all benign or otherwise nonactionable. Patient passed ambulatory trial while in the emergency department. Will discharge back to his care facility with instructions to follow-up with primary care as needed. Otherwise clear return precautions and follow-up instructions given prior to discharge. Departure - Departure Disposition: 01 Home, Self Care Clinical Impression: Parkinson disease, Fall Comments: Thank you for allowing us to care for you today at [facility]. All of the testing performed in the emergency department today including the imaging of your head, cervical spine, all of your lab work and your urine tests were all very reassuring. I am glad that you are feeling better. I would like you to contact your primary care doctor soon as possible in order to arrange for medical recheck. If it anytime you have any new or worsening symptoms please not hesitate to return.
[2022-05-27 06:19] VITALS: BP 158/95
--- NOTE | 2022-05-27 07:25 | CT Report ---
PROCEDURE: HEAD WO INDICATIONS: Fall, poss loc TECHNIQUE: Noncontrast 4.5 mm thick angled axial sections acquired from the foramen magnum to the vertex. For r adiation dose reduction, the following was used: automated exposure control, adjustment of mA and/or kV according to patient size. COMPARISON: None. FINDINGS: Image quality: Excellent. CSF spaces: Basal cisterns are patent. No extra-axial fluid collections. Ventricles are normal in size and shape. Brain: No midline shift. No intracranial masses or hemorrhage. José-white matter interface is norm al. Skull and face: Calvarium and visualized facial bones are intact, without suspicious lesions. Sinuses: Visualized sinuses and mastoids are clear. IMPRESSION: No evidence acute intracranial process. Findings are concordant with preliminary interpretation provided by [facility]. Reviewed by: Babatunde Jhaveri MD on 05/27/2022 6:24 AM [facility] Approved by: Babatunde Jhaveri MD on 05/27/2022 6:24 AM [facility] Station ID: [id number]
--- NOTE | 2022-05-27 07:25 | CT Report ---
PROCEDURE: CERVICAL SPINE WO INDICATIONS: Fall, pos LOC TECHNIQUE: Noncontrast 3 mm thick sections acquired from the skull base to the T4 level. Sagittal and coronal r eformats were then constructed. For radiation dose reduction, the following was used: automated exp osure control, adjustment of mA and/or kV according to patient size. COMPARISON: None. FINDINGS: Image quality: Excellent. Bones: No fractures or dislocations. Visualized superior ribs are intact. Cervical spondylitic tobias ge. Chronic anterior wedging of C7. Disc height loss and uncovertebral joint hypertrophy at C3-C4 and C4-C5 resultant right neuroforaminal narrowing at both levels and left neuroforaminal narrowing at C 4-C5. Soft tissues: Prevertebral soft tissues are normal in thickness. No paravertebral hematomas. No ap ical pneumothoraces. IMPRESSION: 1. No evidence acute bony abnormality of the cervical spine. 2. Cervical spondylitic change. Findings are concordant with preliminary interpretation provided by [facility]. Reviewed by: Babatunde Jhaveri MD on 05/27/2022 6:23 AM [facility] Approved by: Babatunde Jhaveri MD on 05/27/2022 6:23 AM [facility] Station ID: [id number]
== END 2022-05-27 06:40 | disposition home or self-care (01) ==
LOC: EDUNIT# → ED 01:06
DX: Z04.3 Encounter for examination and observation following other accident (principal); G20 Parkinson's disease
CPT/HCPCS: 36415; 80053; 81001; 81003; 82550; 83605; 83690; 85025; 85610; 87086; 93005; 99282; 99284

== ENCOUNTER 2022-09-06 11:38 | Outpatient (CLI) | payer MEDICARE, OTHER ==
--- NOTE | 2022-09-06 18:43 | XRAY Report ---
PROCEDURE: Hand 3 View RT INDICATIONS: R THUMB PAIN TECHNIQUE: 3 views of the hand(s) acquired. COMPARISON: None FINDINGS: Bones: Fracture through the second metatarsal head noted with minimal dorsal displacement of the dist al fracture fragment. Associated soft tissue swelling. No radiopaque foreign body Soft tissues: No suspicious soft tissue calcifications. IMPRESSION: Minimally displaced second metatarsal head fracture Reviewed by: Arnav Beebe MD on 09/06/2022 5:42 PM [facility] Approved by: Arnav Beebe MD on 09/06/2022 5:42 PM [facility] Station ID: [id number]
== END 2022-09-06 11:39 | disposition home or self-care (01) ==
LOC: DI 11:38
PROVIDERS: ATTEND Nurse Practitioner Gerontology
DX: S92.321A Displaced fracture of second metatarsal bone, right foot, initial encounter for closed fracture (principal)

== ENCOUNTER 2022-09-13 13:01 | Outpatient (CLI) | payer MEDICARE, OTHER ==
--- NOTE | 2022-09-13 17:31 | XRAY Report ---
PROCEDURE: Hand 3 View RT INDICATIONS: RIGHT HAND FRACTURE TECHNIQUE: 3 views of the hand(s) acquired. COMPARISON: 09/06/2022 FINDINGS: Bones: Stable position of a slightly impacted, mildly medially displaced fracture of the second metac arpal neck. Joint space is normally aligned. There is deformity of a remote probable fifth metacarpal neck fracture. Questionable remote triquetral fracture versus dorsal dystrophic calcification at the proximal carpal row. Scattered arthritic changes throughout the remainder of the digits. Soft tissues: No suspicious soft tissue calcifications. IMPRESSION: 1. Redemonstration of acute second metacarpal fracture with minimal displacement. 2. Probable prior fifth metacarpal neck and triquetral fractures. 3. Scattered osteoarthritic changes. Reviewed by: Kaleigh Downs MD on 09/13/2022 5:30 PM PST Approved by: Kaleigh Donws MD on 09/13/2022 5:30 PM PST Station ID: [id number]
== END 2022-09-13 13:02 | disposition home or self-care (01) ==
LOC: DI.WOS 13:01
PROVIDERS: ATTEND Orthopaedic Surgery
DX: S62.330D Displaced fracture of neck of second metacarpal bone, right hand, subsequent encounter for fracture with routine healing (principal); M19.041 Primary osteoarthritis, right hand

== ENCOUNTER 2022-09-21 10:25 | Outpatient (CLI) | payer MEDICARE, OTHER | END 2022-09-21 10:26 | disposition short-term general hospital (02) | LOC: EMS 10:25 | DX: M25.522 Pain in left elbow (principal); M79.631 Pain in right forearm; W18.30XA Fall on same level, unspecified, initial encounter; Y92.099 Unspecified place in other non-institutional residence as the place of occurrence of the external cause; R29.6 Repeated falls | CPT/HCPCS: A0425; A0429; A0888 ==

== ENCOUNTER 2022-09-23 08:22 | Outpatient (CLI) | payer MEDICARE, OTHER | END 2022-09-23 23:59 | disposition critical access hospital (66) | LOC: EMS 08:22 | DX: M25.512 Pain in left shoulder (principal); W06.XXXA Fall from bed, initial encounter; Y92.092 Bedroom in other non-institutional residence as the place of occurrence of the external cause | CPT/HCPCS: A0425; A0429 ==

== ENCOUNTER 2022-09-23 08:37 | Emergency (ER) | payer MEDICARE, OTHER ==
[2022-09-23 08:52] VITALS: BP 179/104
--- NOTE | 2022-09-23 09:24 | ED Physician Documentation ---
PD HPI UPPER EXT INJURY - Stated complaint Stated Complaint: SHOULDER PX - Chief complaint Chief Complaint: Trauma Ch/Bk - History obtained from History obtained from: Patient, EMS - History of Present Illness Location: Left, Shoulder Type of injury: Fall (reported fall from bed, found by caregivers beside bed.) Where injury occurred: Other ([facility]) Timing - onset: Today Timing - details: Abrupt onset, Still present Worsened by: Moving. No: Palpating Associated symptoms: No: Weakness, Numbness, Swelling Contributing factors: No: Anticoagulated Similar symptoms before: Has not had sx before Review of Systems Unable to obtain: Dementia Cardiac: denies: Chest pain / pressure GI: denies: Abdominal Pain Musculoskeletal: denies: Neck pain, Back pain Neurologic: denies: Focal weakness, Numbness PD PAST MEDICAL HISTORY - Past Medical History Cardiovascular: None Respiratory: None Neuro: Parkinson's Endocrine/Autoimmune: None GI: None : Benign prostate hypertrophy Psych: Anxiety Derm: None - Past Surgical History Past Surgical History: No - Present Medications Home Medications: Ambulatory Orders Medication Instructions Recorded Confirmed Albuterol Sulf [Ventolin Hfa 3 puffs INH TID 15 Days #1 inhaler 03/09/22 05/11/22 Inhaler] Carbidopa/Levodopa [Rytary ER 1 each PO QID 05/11/22 05/27/22 48.75 mg-195 mg Cap] Citalopram [CeleXA] 20 mg PO DAILY 05/11/22 05/27/22 LORazepam [Ativan] 1 mg PO BID 05/11/22 05/27/22 Melatonin/Pyridoxine [Melatonin 5 5 mg PO DAILY 05/11/22 05/27/22 mg Tablet] Mirabegron [Myrbetriq] 25 mg PO DAILY 05/11/22 05/27/22 Tamsulosin [Flomax] 0.4 mg PO DAILY 05/11/22 05/27/22 - Allergies Allergies/Adverse Reactions: Allergies Allergy/AdvReac Type Severity Reaction Status Date / Time ciprofloxacin [From Cipro] Allergy Unknown Verified 05/27/22 01:22 meperidine [From Demerol] Allergy Unknown Verified 05/27/22 01:22 - Social History Does the pt smoke?: No Smoking Status: Never smoker Does the pt drink ETOH?: No Does the pt have substance abuse?: No - POLST Patient has POLST: Yes PD ED PE NORMAL - Vitals Vital signs reviewed: Yes - General General: Alert and oriented X 3, Well developed/nourished - HEENT HEENT: Atraumatic - Neck Neck: Supple, no meningeal sign, No bony TTP - Cardiac Cardiac: RRR - Respiratory Respiratory: No respiratory distress, Clear bilaterally - Abdomen Abdomen: Soft, Non tender - Back Back: No spinal TTP - Derm Derm: Normal color, Warm and dry - Extremities Extremities: Other (left shoulder tender laterally. No noted deformity. Active ROM fairly good, with some pain at abduction more than 90 degrees. Clavicle not tender. ) - Neuro Neuro: No motor deficit, Normal speech, Other (some tremor/shakiness with movement c/w Parkinsons. ). No: Alert and oriented X 3 (to person and place. ) Eye Opening: Spontaneous Motor: Obeys Commands Verbal: Confused GCS Score: 14 Results - Vitals Vitals: Oxygen O2 Source Room air - Rads (name of study) left shoulder Radiology: Prelim report reviewed (no fractures), See rad report PD MEDICAL DECISION MAKING - ED course Complexity details: considered differential (reported fell from bed and was favoring shoulder movement. Improved enroute per EMS. Denies [facility] pain here.), d/w patient Departure - Departure Disposition: 01 Home, Self Care Clinical Impression: Fall from bed, initial encounter, Left shoulder strain Condition: Stable Record reviewed to determine appropriate education?: Yes Comments: Your shoulder x-ray appears normal. No other apparent new injury on exam. Continue with your prior splints and follow-up with regard to the forearm injuries recently. Tylenol if needed for pains. Discharge Date/Time: 09/23/22 12:47
--- NOTE | 2022-09-23 10:25 | XRAY Report ---
PROCEDURE: Shoulder 2 View LT INDICATIONS: fall with some shoulder pain TECHNIQUE: 2 views of the shoulder were acquired. COMPARISON: None. FINDINGS: Bones: No fractures or dislocations. No suspicious bony lesions. Visualized ribs appear intact. A ge-appropriate degenerative changes are seen. Soft tissues: No suspicious soft tissue calcifications. The visualized lung demonstrates a normal a ppearance. IMPRESSION: No acute plain film abnormality is seen. Underlying degenerative changes are seen. If it would be helpful for clinical management decision making, please consider a dedicated, schedule d shoulder MRI for further evaluation (assuming that there is no contraindication). Reviewed by: Raz Hogan MD on 09/23/2022 9:23 AM [facility] Approved by: Raz Hogan MD on 09/23/2022 9:23 AM [facility] Station ID: [id number]
--- OUTSIDE RECORDS SUMMARY | 2022-09-23 10:29 | EXTERNAL MEDICAL SUMMARY RPT | Continuity of Care Document ---
:1950 Author Organization [facility] Address [address] [place] [address] Phone Care Team Providers Name Role Phone Donna Larsen, Simeon Unavailable Unavailable Marilin Kam Unavailable Unavailable [place] Patient Registrar, [place] Unavailable Leticia Villatoro,Mary Bowen Unavailable Unavailable [place] Patient Registrar, [place] Unavailable Leticia Atkinson Rn, Sunita Unavailable Unavailable Allergies No information. Encounters No information. Functional Status No information. Immunizations No information. Medications No information. Problems No information. Procedures date description facility +0000 XR elbow left, 3+ views [facility] [id number]+0000 X-ray of chest, single view [facility] Results/Labs No information. Social History date description facility +0000 Unknown if ever smoked All [id number]+0000 Unknown if ever smoked All [id number]+0000 Unknown if ever smoked All 42834485202170+0000 Unknown if ever smoked All 68773205295730+0000 Unknown if ever smoked All 98091358853872+0000 Ex-smoker (finding) [facility] Vital Signs date measurement value units 05122889438884+0000 BP_diastolic BP_diastolic 72 mmHg 96723307968093+0000 BP_systolic BP_systolic 153 mmHg 95283625499863+0000 heart_rate heart_rate 67 /min 27088599914549+0000 o2_saturation o2_saturation 98 % 42203212217967+0000 respiration_rate respiration_rate 18 /min 19066436287604+0000 temperature_metric temperature_metric 36.33 C 15151323808043+0000 temperature_standard temperature_standard 9 7.4 F 56576566605002+0000 weight_metric weight_metric 79.6 kg 87237165862051+0000 weight_standard weight_standard 175.49 lb
== END 2022-09-23 12:47 | disposition home or self-care (01) ==
LOC: EDUNIT# → ED 08:37
DX: S46.912A Strain of unspecified muscle, fascia and tendon at shoulder and upper arm level, left arm, initial encounter (principal); W06.XXXA Fall from bed, initial encounter
CPT/HCPCS: 99282; 99283

== ENCOUNTER 2022-09-23 12:44 | Outpatient (CLI) | payer MEDICARE, OTHER | END 2022-09-23 23:59 | disposition home or self-care (01) | LOC: EMS 12:44 | PROVIDERS: ATTEND Emergency Medicine | DX: R41.0 Disorientation, unspecified (principal); F03.90 Unspecified dementia, unspecified severity, without behavioral disturbance, psychotic disturbance, mood disturbance, and anxiety | CPT/HCPCS: A0425; A0428 ==

== ENCOUNTER 2022-11-27 12:39 | Outpatient (CLI) | payer MEDICARE, OTHER ==
--- NOTE | 2022-11-27 18:37 | XRAY Report ---
PROCEDURE: Hand 3 View RT INDICATIONS: F/U 2ND METACARPAL FX OF RIGHT HAND TECHNIQUE: 3 views of the hand(s) acquired. COMPARISON: 09/13/2022 FINDINGS: Bones: Generalized decreased osseous mineralization present. There is bridging callus and remodeling of a second metacarpal fracture. Interphalangeal arthritic changes noted Soft tissues: No suspicious soft tissue calcifications. IMPRESSION: Healing second metacarpal fracture Osteopenia Reviewed by: Arnav Beebe MD on 11/27/2022 5:35 PM [facility] Approved by: Arnav Beebe MD on 11/27/2022 5:35 PM [facility] Station ID: [id number]
== END 2022-11-27 12:40 | disposition home or self-care (01) ==
LOC: DI 12:39
PROVIDERS: ATTEND Nurse Practitioner Gerontology
DX: S62.300D Unspecified fracture of second metacarpal bone, right hand, subsequent encounter for fracture with routine healing (principal); M19.041 Primary osteoarthritis, right hand

== ENCOUNTER 2023-01-28 17:30 | Outpatient (CLI) | payer MEDICARE, OTHER | END 2023-01-28 17:31 | disposition critical access hospital (66) | LOC: EMS 17:30 | DX: M25.552 Pain in left hip (principal); W01.0XXA Fall on same level from slipping, tripping and stumbling without subsequent striking against object, initial encounter; Y92.091 Bathroom in other non-institutional residence as the place of occurrence of the external cause | CPT/HCPCS: A0425; A0429 ==

== ENCOUNTER 2023-01-28 17:47 | Emergency (ER) | payer MEDICARE, OTHER ==
[2023-01-28 18:00] VITALS: BP 169/88
--- NOTE | 2023-01-28 18:03 | ED Physician Documentation ---
History of Present Illness - Stated complaint Stated Complaint: L HIP PX - Chief complaint Chief Complaint: Trauma Ext - History obtained from History obtained from: Patient - Additonal information Additional information: 72-year-old male presents with left hip pain after a slip and fall. The patient lives at [facility] and states he was shuffling in his room and stumbled and fell. He mostly is wheelchair-bound but does occasionally shuffle. He had no prodromal symptoms prior to the fall including dizziness, chest pain or dyspnea, weakness. He did not hit his head and complains only of left hip pain.He has not attempted any medication or other treatment prior to arrival. Injury actually occurred this morning but patient did not seek care until this evening. He is on Eliquis, he did not hit his head, neck or back and complains only of left hip pain. Review of Systems Constitutional: reports: Reviewed and negative Eyes: reports: Reviewed and negative Ears: reports: Reviewed and negative Nose: reports: Reviewed and negative Throat: reports: Reviewed and negative Cardiac: reports: Reviewed and negative Respiratory: reports: Reviewed and negative GI: reports: Reviewed and negative : reports: Reviewed and negative Skin: reports: Reviewed and negative Musculoskeletal: reports: Extremity pain, Joint pain Neurologic: reports: Reviewed and negative Psychiatric: reports: Reviewed and negative PD PAST MEDICAL HISTORY - Past Medical History Past Medical History: Yes Cardiovascular: None Respiratory: None Neuro: Parkinson's Endocrine/Autoimmune: None GI: None : Benign prostate hypertrophy Psych: Anxiety Derm: None - Past Surgical History Past Surgical History: No - Present Medications Home Medications: Ambulatory Orders Medication Instructions Recorded Confirmed Albuterol Sulf [Ventolin Hfa 3 puffs INH TID 15 Days #1 inhaler 03/09/22 05/11/22 Inhaler] Carbidopa/Levodopa [Rytary ER 1 each PO QID 05/11/22 05/27/22 48.75 mg-195 mg Cap] Citalopram [CeleXA] 20 mg PO DAILY 05/11/22 05/27/22 LORazepam [Ativan] 1 mg PO BID 05/11/22 05/27/22 Melatonin/Pyridoxine [Melatonin 5 5 mg PO DAILY 05/11/22 05/27/22 mg Tablet] Mirabegron [Myrbetriq] 25 mg PO DAILY 05/11/22 05/27/22 Tamsulosin [Flomax] 0.4 mg PO DAILY 05/11/22 05/27/22 - Allergies Allergies/Adverse Reactions: Allergies Allergy/AdvReac Type Severity Reaction Status Date / Time ciprofloxacin [From Cipro] Allergy Unknown Verified 01/28/23 17:55 meperidine [From Demerol] Allergy Unknown Verified 01/28/23 17:55 - Social History Does the pt smoke?: No Smoking Status: Never smoker Does the pt drink ETOH?: No Does the pt have substance abuse?: No - POLST Patient has POLST: Yes PD ED PE NORMAL - Vitals Vital signs reviewed: Yes - General General: Alert and oriented X 3, No acute distress, Well developed/nourished - HEENT HEENT: Atraumatic, Pharynx benign - Neck Neck: Supple, no meningeal sign, No JVD - Cardiac Cardiac: Other (Irregularly irregular) - Respiratory Respiratory: No respiratory distress, Clear bilaterally - Abdomen Abdomen: Normal bowel sounds, Soft - Derm Derm: Normal color, Warm and dry, Other (There is a Small hematoma to the left hip joint.) - Extremities Extremities: Other (Left hip tenderness to palpation, there is a Small hematoma visible, no erythema. No shortening or rotation noted.) - Neuro Neuro: Alert and oriented X 3 Eye Opening: Spontaneous Motor: Obeys Commands Verbal: Oriented GCS Score: 15 Results - Vitals Vitals: Vital Signs - 24 hr 01/28/23 17:56 Temperature 36.5 C Heart Rate 60 Respiratory 16 Rate Blood Pressure 169/88 H O2 Saturation 98 Oxygen O2 Source Room air - Labs Labs: Laboratory Tests 01/28/23 01/28/23 01/28/23 19:08 19:08 19:08 WBC 7.8 RBC 4.19 L Hgb 12.3 L Hct 38.1 L MCV 90.9 MCH 29.4 MCHC 32.3 RDW 14.1 Plt Count 181 MPV 9.4 Neut # (Auto) 6.0 Lymph # (Auto) 1.1 L Mills # (Auto) 0.6 Eos # (Auto) 0.1 Baso # (Auto) 0.1 Absolute Nucleated RBC 0.00 Nucleated RBC % 0.0 PT 14.6 H INR 1.3 H Sodium 136 Potassium 4.4 Chloride 107 Carbon Dioxide 26 Anion Gap 3.0 L BUN 27 H Creatinine 1.0 Estimated GFR (MDRD) 74 L Glucose 123 H Calcium 8.7 Total Bilirubin 0.6 AST 19 ALT < 10 L Alkaline Phosphatase 81 Total Protein 6.5 L Albumin 4.3 Globulin 2.2 Albumin/Globulin Ratio 2.0 Lipase 30 PD Medical Decision Making - ED course Complexity details: reviewed results, re-evaluated patient, considered differential, d/w patient ED course: 72-year-old Male presents with left hip pain after a fall this morning As described in HPI. The patient is well-appearing on physical exam, no distress, there is no shortening or rotation of the left hip but he is noted to have a left hip hematoma. We obtain x-ray which showed no fracture, I did proceed with a CT given the possibility of occult fracture and to evaluate the hematoma. There is no fracture but he does have a 7.6 cm hematoma. The patient's labs are stable he is hemodynamically stable for this should stop on its own. He is safe for discharge home at this time, his site should be monitored and if he has a substantial increase in size or any signs of infection such as redness increased pain, fever or weakness, he should return to the ER for reevaluation. Departure - Departure Disposition: 01 Home, Self Care Clinical Impression: Traumatic hematoma of left hip Qualifiers: Encounter type: initial encounter Qualified Code(s): S70.02XA - Contusion of left hip, initial encounter Condition: Good Instructions: ED Hematoma Comments: Lukasz presented after a fall on the left hip. There is no sign of fracture or dislocation but he does have a hematoma of the left hip, which is bleeding underneath the skin. This should stop on its own but it is likely bigger due to his anticoagulation use. There are no medications that he needs to take for this other than Tylenol if he has discomfort. Please monitor the size Of the swelling on the left hip and if he has increasing swelling of the left hip, or develops any signs of anemia such as weakness, dizziness, paleness, or other new concerns, return to the ER for evaluation.
--- NOTE | 2023-01-28 18:50 | XRAY Report ---
PROCEDURE: Hip w/Pelvis 2-3V LT INDICATIONS: fall onto left hip, pain/swelling TECHNIQUE: AP pelvis with lateral view(s) of the left hip(s). COMPARISON: CT abdomen pelvis 05/11/2022. FINDINGS: Bones: No fractures or dislocations. Pelvic ring appears intact. No suspicious bony lesions. Soft tissues: The visualized bowel gas pattern is normal. No suspicious soft tissue calcifications. IMPRESSION: No acute osseous abnormality. If clinically indicated consider CT bony pelvis for further evaluation. Reviewed by: Fabian Francisco MD on 01/28/2023 6:49 PM PDT Approved by: Fabian Francisco MD on 01/28/2023 6:49 PM PDT Station ID: [id number]
[2023-01-28 19:16] LABS: BASOPHILS # (AUTO) 0.1 10^3/uL (0.0-0.1); BASOPHILS % (AUTO) 0.6 %; EOSINOPHILS # (AUTO) 0.1 10^3/uL (0.0-0.7); EOSINOPHILS % (AUTO) 1.3 %; HCT - HEMATOCRIT 38.1 % (42.0-52.0); HGB - HEMOGLOBIN 12.3 g/dL (14.0-18.0); LYMPHOCYTES # (AUTO) 1.1 10^3/uL (1.5-3.5); LYMPHOCYTES % (AUTO) 14.5 %; MEAN CORPUSCULAR HEMOGLOBIN 29.4 pg (27.0-31.0); MEAN CORPUSCULAR HGB CONC 32.3 g/dL (32.0-36.0); MEAN CORPUSCULAR VOLUME 90.9 fL (80.0-94.0); MEAN PLATELET VOLUME 9.4 fL (7.4-11.4); MONOCYTES # (AUTO) 0.6 10^3/uL (0.0-1.0); MONOCYTES % (AUTO) 7.1 %; NEUTROPHILS % (AUTO) 76.2 %; PLT - PLATELET COUNT 181 10^3/uL (130-450); RED BLOOD COUNT 4.19 10^6/uL (4.70-6.10); RED CELL DISTRIBUTION WIDTH 14.1 % (12.0-15.0); WHITE BLOOD COUNT 7.8 x10^3/uL (4.8-10.8)
[2023-01-28 19:25] LABS: ALBUMIN 4.3 g/dL (3.2-5.5); ALKALINE PHOSPHATASE 81 IU/L (42-121); ALT ALANINE AMINOTRANSFERASE < 10 IU/L (10-60); AST ASPARTATE AMINOTRANSFERASE 19 IU/L (10-42); BILIRUBIN,TOTAL 0.6 mg/dL (0.2-1.0); BUN - BLOOD UREA NITROGEN 27 mg/dL (6-20); CALCIUM 8.7 mg/dL (8.5-10.3); CARBON DIOXIDE - CO2 26 mmol/L (21-32); CHLORIDE 107 mmol/L (101-111); GFR - MDRD 74 (>89); GLUCOSE 123 mg/dL (70-100); LIPASE 30 U/L (22-51); POTASSIUM 4.4 mmol/L (3.5-5.0); SODIUM 136 mmol/L (135-145); TOTAL PROTEIN 6.5 g/dL (6.7-8.2)
[2023-01-28 19:33] LABS: INR 1.3 (0.8-1.2); PT - PROTHROMBIN TIME 14.6 secs (9.9-12.6)
--- NOTE | 2023-01-28 19:52 | CT Report ---
PROCEDURE: PELVIS WO INDICATIONS: left hip injury TECHNIQUE: Noncontrast 3 mm axial sections acquired through the bony pelvis, with coronal and sagittal reformatt ing. For radiation dose reduction, the following was used: automated exposure control, adjustment of mA and/or kV according to patient size. COMPARISON: AP pelvis and left hip radiographs earlier today. FINDINGS: Image quality: Excellent. Bones: No acute fracture. No dislocation. 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 No suspicious o sseous lesion. Soft tissues: Hematoma adjacent to the left hip in the subcutaneous tissues measuring 7.6 x 5.1 x 4. 9 cm, ( and ). Prostatomegaly. No fluid in the pelvis. Normal appendix. IMPRESSION: No left hip fracture. Hematoma adjacent to the left hip measuring 7.6 cm. Reviewed by: Fabian Francisco MD on 01/28/2023 7:50 PM PDT Approved by: Fabian Francisco MD on 01/28/2023 7:50 PM PDT Station ID: [id number]
== END 2023-01-28 20:41 | disposition home or self-care (01) ==
LOC: EDUNIT# → ED 17:47
DX: S70.02XA Contusion of left hip, initial encounter (principal); W19.XXXA Unspecified fall, initial encounter; G20 Parkinson's disease
CPT/HCPCS: 36415; 80053; 83690; 85025; 85610; 99283; 99284

== ENCOUNTER 2023-06-29 17:59 | Outpatient (CLI) | payer MEDICARE, OTHER | END 2023-06-29 18:00 | disposition short-term general hospital (02) | LOC: EMS 17:59 | DX: R51.9 Headache, unspecified (principal); W05.0XXA Fall from non-moving wheelchair, initial encounter; Y92.099 Unspecified place in other non-institutional residence as the place of occurrence of the external cause; R29.6 Repeated falls; Z79.01 Long term (current) use of anticoagulants | CPT/HCPCS: A0425; A0429 ==

== ENCOUNTER 2023-09-21 06:57 | Outpatient (CLI) | payer MEDICARE, OTHER | END 2023-09-21 23:59 | disposition EMS.NT | LOC: EMS 06:57 | DX: F41.9 Anxiety disorder, unspecified (principal) ==

== ENCOUNTER 2023-12-01 06:03 | Outpatient (CLI) | payer MEDICARE, OTHER | END 2023-12-01 23:59 | disposition E | LOC: EMS 06:03 ==